=== PATIENT | male | born 1975 | race Caucasian/White ===

== ENCOUNTER 2019-02-09 07:22 | Outpatient (CLI) | payer OTHER, SELFPAY ==
[2019-02-10 11:50] LABS: Adrenocorticotropic Hormone, P 34 pg/mL
== END 2019-02-09 07:42 ==
PROVIDERS: PCP Family Medicine; Visit Provider Internal Medicine Endocrinology, Diabetes & Metabolism
DX: D35.2 Benign neoplasm of pituitary gland (principal)
CPT/HCPCS: 36415; 82533; 82024

== ENCOUNTER 2019-08-11 02:18 | Outpatient (CLI) | payer OTHER, SELFPAY ==
[2019-08-11 11:05] LABS: Anion Gap 8.8 mmol/L (3-11); BUN 10 mg/dL (7-18); CO2 29.2 mmol/L (21.0-32.0); CREATININE 0.71 mg/dL (0.70-1.30); Calcium 9.3 mg/dL (8.5-10.1); Chloride 102 mmol/L (98-107); Glucose 78 mg/dL (74-106); Potassium 4.1 mmol/L (3.5-5.1); Sodium 140 mmol/L (136-145)
[2019-08-13 12:21] LABS: Testosterone, Total 318 ng/dL (240-950)
[2019-08-14 10:21] LABS: Prolactin 9.8 ng/mL (2.1-17.7)
[2019-08-14 12:11] LABS: IGF-1, LC/MS, S 67 ng/mL (44-275); Z-score -1.65 SD
[2019-08-14 15:07] LABS: Adrenocorticotropic Hormone, P 30 pg/mL
== END 2019-08-11 02:38 ==
PROVIDERS: PCP Family Medicine; Visit Provider Internal Medicine Endocrinology, Diabetes & Metabolism
DX: E89.3 Postprocedural hypopituitarism (principal); D35.2 Benign neoplasm of pituitary gland; Z92.3 Personal history of irradiation
CPT/HCPCS: 36415; 80048; 82533; 84403; 82024; 84146; 84305

== ENCOUNTER 2019-08-18 10:34 | Outpatient (CLI) | payer OTHER, SELFPAY ==
--- NOTE | 2019-08-18 09:20 | DI.RAD_ITS ---
EXAM: XR KNEE LT 3V AP,LAT,FUNMI CLINICAL HISTORY: left knee pain. TECHNIQUE: 2D digital imaging was performed. COMPARISON: No exams were available for comparison FINDINGS: BONES: No acute fracture is present. No bony destructive lesion is seen. JOINTS: The knee is normally aligned. No joint effusion is seen. There is no joint space narrowing or periarticular spurring SOFT TISSUE: Normal. IMPRESSION: Normal radiographs of the left knee. DATA REPOSITORY: RADIATION DOSE DELIVERED:
== END 2019-08-18 10:54 ==
PROVIDERS: PCP Family Medicine; Visit Provider Physician Assistant Surgical
DX: M25.562 Pain in left knee (principal)
CPT/HCPCS: 73562

== ENCOUNTER 2019-09-07 00:37 | Outpatient (CLI) | payer OTHER, SELFPAY ==
--- NOTE | 2019-09-07 07:15 | DI.MRI_ITS ---
EXAM: MR LOWER JOINT LT WO CLINICAL HISTORY: Left knee pain,m25.562. TECHNIQUE: Multiplanar multisequence MRI was performed. COMPARISON: XR KNEE LT 3V AP,LAT,FUNMI from 08/18/2019 FINDINGS: There is a minimal joint effusion. The anterior cruciate ligament shows some intermediate signal but no evidence of a full-thickness tea r. The posterior cruciate ligament, medial and lateral collateral ligaments and extensor mechanism a ppear intact. The menisci appear normal. In the subchondral bone of the posterior aspect of the lateral femoral condyle, there is a ovoid les ion with low T1 signal high T2 signal serpiginous margins. There is no significant surrounding edema in the marrow. The findings are consistent with a chronic bone infarct. This corresponds to an are a of sclerosis seen on plain films. There is also no overlying cartilage defect. There is no subcho ndral collapse. IMPRESSION: Minimal joint effusion. Question of an ACL sprain. 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 DATA REPOSITORY:
== END 2019-09-07 00:57 ==
PROVIDERS: PCP Family Medicine; Visit Provider Physician Assistant Surgical
DX: M25.462 Effusion, left knee (principal); M25.562 Pain in left knee; M89.8X6 Other specified disorders of bone, lower leg
CPT/HCPCS: 73721

== ENCOUNTER 2019-10-16 14:55 | Outpatient (CLI) | payer MEDICARE, OTHER, SELFPAY ==
--- NOTE | 2019-10-16 14:15 | DI.RAD_ITS ---
EXAM: XR PELVIS AP CLINICAL HISTORY: pre JASWANT TECHNIQUE: COMPARISON: CR XR HIP LT COMPLETE AP PELVIS from 09/25/2019 FINDINGS: Single AP view was obtained. Note is again made of mixed sclerotic and lytic appearance of both femo ral heads, little interval change in appearance comparison with previous examination of September 24. Pr esumed bilateral avascular necrosis. No other significant bony abnormality seen. IMPRESSION:
== END 2019-10-16 15:15 ==
PROVIDERS: PCP Family Medicine; Referring Provider Family Medicine; Visit Provider Student in an Organized Health Care Education/Training Program
DX: M87.051 Idiopathic aseptic necrosis of right femur (principal); M87.052 Idiopathic aseptic necrosis of left femur; M87.9 Osteonecrosis, unspecified
CPT/HCPCS: 99213; 72170

== ENCOUNTER 2019-10-23 04:22 | Outpatient (CLI) | payer MEDICARE, OTHER, SELFPAY ==
[2019-10-23 10:38] LABS: HCT 38.4 % (40.0-50.0); HGB 13.8 g/dL (13.5-17.5); Mean Corp. HGB Concentration 35.9 g/dL (32.0-36.0); Mean Corpuscular Hemoglobin 30.1 pg (27.0-33.0); Mean Corpuscular Volume 83.8 fL (80-95); Mean Platelet Volume 8.9 fL (8.0-11.0); Platelet Count 377 x1000/uL (130-400); RBC 4.58 m/cumm (4.50-6.00); RBC Distribution Width 13.5 % (11.8-14.1)
[2019-10-23 11:01] LABS: Hemoglobin A1C 5.3 % (3.8-5.6)
[2019-10-23 11:24] LABS: Calculated LDL 117 mg/dL (<100); Cholesterol 181 mg/dL (<200); HDL Cholesterol 53 mg/dL (40-60); Triglyceride 57 mg/dL (<150)
[2019-10-23 11:31] LABS: Anion Gap 11.2 mmol/L (3-11); BUN 9 mg/dL (7-18); CO2 27.8 mmol/L (21.0-32.0); CREATININE 0.82 mg/dL (0.70-1.30); Calcium 9.2 mg/dL (8.5-10.1); Chloride 98 mmol/L (98-107); Glucose 95 mg/dL (74-106); Potassium 4.3 mmol/L (3.5-5.1); Sodium 137 mmol/L (136-145)
== END 2019-10-23 04:42 ==
PROVIDERS: PCP Family Medicine; Visit Provider Student in an Organized Health Care Education/Training Program
DX: M87.852 Other osteonecrosis, left femur (principal); E11.9 Type 2 diabetes mellitus without complications; Z01.818 Encounter for other preprocedural examination; Z01.812 Encounter for preprocedural laboratory examination
CPT/HCPCS: 36415; 80048; 80061; 85027; 86850; 86900; 86901; 83036

== ENCOUNTER 2019-10-25 06:12 | Observation (INO) | payer MEDICARE, OTHER, SELFPAY ==
[2019-10-25] VITALS (9 sets, daily range): BP systolic 97–148; BP diastolic 72–88; PULSE 58–66; RESP 11–21; TEMP 36.1–36.7; O2SAT 98–100
[2019-10-25] MEDS: Celecoxib 200 MG CAP 400 MG PO (06:34)
[2019-10-25] MEDS: Lactated Ringers 1,000 ML 80 ML IV ×2 (06:34→10:34)
[2019-10-25] MEDS: Acetaminophen 500 MG TAB 1000 MG PO ×2 (06:34→13:45)
--- NOTE | 2019-10-25 07:00 | DI.RAD_ITS ---
EXAM: XR HIP LT IN OR CLINICAL HISTORY: avascular necrosis of left hip TECHNIQUE: 2D and realtime digital imaging was performed. CONTRAST MATERIAL: Refer to procedure report. COMPARISON: CR XR PELVIS AP from 10/16/2019 FINDINGS: Fluoroscopy was provided for Dr. Baeza during the performance of a left total hip replacement. P lease refer to the procedure report for complete details. Fluoro time: 27.6 seconds IMPRESSION:
--- NOTE | 2019-10-25 07:31 | PDOC.CMPRO ---
- If Service Date Differs Date of service: 10/24/19 Time of Service: 15:00 Care Management Progress Note S/O: CM contacted Jaylan to review discharge needs prior to admission. Brian states that he is feeling anxious before surgery and does not want to stay overnight. Brian also expresses concern when CM assessed for advance directives. He states I have been asked three times about an advance directive, this is just a simple procedure should I be worried? CM provided education regarding advance directives and assisted in understanding that it is an assessment questions and asked of all patients. CM acknowledge patients concerns and appreciation for feedback. Brian states he has support at home by his spouse and feels that he can safely be discharged when he is medically ready. He is in need of a FWW, CM reviewed benefits including FWW as part of his surgical procedure. He questioned if he would be billed for it, and is concerned that he will not have the means to pay for the FWW. CM again reviewed benefits and provided education that the FWW would be part of the surgery and r/t recovery. He is agreeable to receive the equipment. CM offered to be present if needed prior to surgery to provide support. A: Jaylan is a 44 year old male being admitted today for status post left total hip P: Brian will plan to be discharged the same day, CM will coordinate a FWW, and his spouse will provide transportation home. CM offered support during patients stay and can be contacted at extension [phone] with any concerns or questions in regard to the patients needs.
[2019-10-25] MEDS: ceFAZolin 1 GM/50 ML BAG IVPB (07:50)
--- NOTE | 2019-10-25 08:40 | FEMHEA_PTH ---
PATIENT: Jaylan Arredondo JR LOC: U#:[id number] AGE/SX: 44/M ROOM: [id number] RE10/25/[address]: Jacques Baeza MD : [id number] BED: A DIS: 10/25/2019 SPEC #: [id number] RECD: 10/25/19 12:04 STATUS: DONNA REQ #: [id number] ELIJAH: 10/25/19 08:[address]: Jacques Baeza DEPT: Surgical Specimen RECD BY: Rona Bates ENTERED: 10/25/19 12:04 SP TYPE: Femo Head OTHR DR: Rayshawn Mcneill, DO Darryl Meier Tissues: 1 - FEMORAL HEAD Procedures: GROSS AND MICRO LEVEL 4 Comments: [id number]
[2019-10-25] MEDS: Bupivacaine 0.25% Pres-Free 30 ML VIAL (08:41)
[2019-10-25] MEDS: Ketorolac 30 MG/ML VIAL (08:41)
--- NOTE | 2019-10-25 10:02 | W.PM.DS.N ---
Date of service: 10/25/19 Time of Service: 12:46 DS: Diagnosis Discharge Diagnosis (1) Osteonecrosis of hip: Status: Acute Discharge Plan Disposition Patient Disposition: HOME Condition: Good Discharge Details Reason For Visit: Left Hip Avascular Necrosis Admit Date/Time: 10/25/19 06:12 Admit Provider: Jacques Baeza Attending Provider: Jacques Baeza [facility] Hospital Course: Patient was admitted to the medical/surgical floor following the procedure. The surgery was tolerated well without any notable medical, surgical, or anesthetic complications. Mobilization began postoperatively. The patient was voiding spontaneously. Vitals were stable. Physical therapy worked with the patient and was cleared for discharge home. No acute medical issues. Pain was controlled on oral regimen. Home Meds and New Rx's Prescriptions: New aspirin 81 mg tablet,delayed release (DR/EC) 81 mg PO BID Qty: 60 RF: 0 acetaminophen 500 mg tablet 1,000 mg PO Q8H PRN (Reason: pain) Qty: 90 RF: 3 pantoprazole 40 mg tablet,delayed release (DR/EC) 40 mg PO DAILY Qty: 30 RF: 0 ibuprofen 600 mg tablet 600 mg PO TID PRNQty: 90 RF: 3 oxycodone 5 mg tablet 5 mg PO Q4H Qty: 12 RF: 0 docusate sodium [Colace] 100 mg capsule 100 mg PO BID PRNQty: 10 RF: 0 Continued topiramate 50 mg tablet 50 mg PO DAILY RF: 0 triamcinolone acetonide 0.1 % cream 1 applic TP BID PRN (Reason: BLE irritant contact dermatitis) Qty: 80 RF: 1 meclizine 12.5 mg tablet See Rx Instructions PO Q8H PRN RF: 0 levothyroxine 25 mcg tablet 25 mcg PO DAILY RF: 0 riboflavin (vitamin B2) 400 mg Tablet 400 mg PO PRN PRNRF: 0 Discontinued acetaminophen 500 mg tablet 1,000 mg PO TID PRNRF: 0 ibuprofen 400 mg tablet 400 mg PO TID PRNRF: 0 Discharge Instructions Additional Instructions: Dr. Baeza's Total Hip Discharge Instructions Activity: The most important activity is to walk. You should try to take short walks a few times a day. You have no restrictions on movement or positioning, but do not try to force what you do. You will find some stiffness and weakness with hip flexion (lifting your knee). Do not try to strengthen this too early, continue to practice walking and stairs and this will come. - Outpatient physical therapy can be helpful to help return you to a normal gait and improve your flexibility and strength. This can start around 2 weeks. For most patients, it?s not necessary. Usually this is determined at the time of discharge or at the first post-operative visit. - You should wear the HIEU hose on both legs for 2 weeks. You may remove those at night. These prevent blood pooling and swelling. Dressing: Keep the surgical dressing in place for at least one week, although it may stay in place untill follow-up. It may get wet after 3 days but avoid soaking the dressing. If it gets wet, just lightly pat dry. Most people prefer to cover the dressing with some ClingWrap, Saran Wrap, to keep it dry. After the first week it may be removed if desired and then replaced with light gauze and tape or nothing. It is important to always keep some gauze or the dressing between skin folds, especially when you are sitting, so the incision is not folded over on itself at the belly fold. Medications: - You should take Tylenol and an anti-inflammatory Ibuprofen as your primary pain control medications - You have been prescribed a stronger pain medication Oxycodone for breakthrough pain, take as needed as prescribed. - You have also been prescribed a stomach acid reduction agent Pantoprozole to help reduce stomach acid and reflux. - You will be taking Aspirin 81mg twice a day for DVT prevention unless instructed otherwise. - If you have constipation you should take Colace or Miralax (both [id number]). Colace has been called in. It takes most people 3-4 days to have a bowel movement. Follow-up: 2 weeks. If you have any acute concerns or questions, please do not hesitate to contact the office at [phone]. You may contact Dr. Baeza with any questions after hours through the hospital at [phone] or on his cell phone at [phone]. Referrals: Jacques Baeza MD [ [facility] STAFF PHYSICIAN] - Activity:: Activity as Tolerated Equipment/Supplies:: Walker Diet:: As Tolerated Discharge Orders Discharge Orders: Discharge Order (Routine); Ordered 10/25/19 Ordered By: Jacques Baeza DS: Summary Status at Discharge Functional status at discharge: uses cane/walker Overall status at discharge: patient is progressing back to baseline Mental Status: mental status grossly normal Speech and Movement: speech and movement normal Mood: congruent mood Affect: normal affect Exam Psych Mental Status: mental status grossly normal Speech and Movement: speech and movement normal Mood: congruent mood Affect: normal affect DS: Data Vitals/I&O Vitals and I&O: Vital Signs Temperature 36.2 C L 10/25/19 09:42 Pulse 58 L 10/25/19 09:42 Pulse Rhythm Regular 10/25/19 06:21 Respiratory Rate 15 10/25/19 09:42 Blood Pressure 109/76 10/25/19 09:42 Pulse Oximetry 100 10/25/19 09:42 Oxygen Delivery Method Room Air 10/25/19 09:42 Oxygen Flow Rate 0 10/25/19 06:21 Pain Level 0 10/25/19 09:42 Intake & Output 10/24/19 10/24/19 10/25/19 11:59 23:59 11:59 Intake Total 870 / 870 Output Total 75 / 75 Balance 795 / 795 Weight 51.8 kg Intake: IV 870 / 870 Output: Estimated Blood Loss 75 / 75 Other: Emesis Description None PFSH Social History Smoking/Tobacco Use Status: Current every day Tobacco Type: cigarettes Years smoked: 28 and e-cigarettes Smokeless tobacco user: other Alcohol Intake: current Alcohol Intake frequency: a few times a month Alcohol type: beer Drug use: Daily Substance use type: does not use Adopted: No Household members: spouse and children Housing: house Number of Children: 3 Current gender identity: male What is your relationship status?: Panel score (0-1 are the most socially isolated patients): 1 What type of physical activity do you participate in: none and additional Details: active at home--daily home activities Seatbelt use: always Helmet use: Yes Drive intox or ride w/intox skip load driver: No Working smoke detector in home: Yes Fire extinguisher in home: Yes Carbon monox detector in home: Yes Firearms in home: Yes (1 at bedside loaded but door locked)
--- NOTE | 2019-10-25 10:33 | ROE_ITS ---
Date of service: 10/25/19 Time of Service: 09:19 Operative Note Operative Note DATE OF PROCEDURE: 10/25/19 PRE-OP DIAGNOSIS: Left Hip Avascular Necrosis POST-OP DIAGNOSIS: same PROCEDURE: Left Anterior Total Hip Arthroplasty SURGEON: Jacques Baeza PLUMBING ASSEMBLER INSTALLER: Lolis Coyne ANESTHESIA: spinal ESTIMATED BLOOD LOSS: 75 PATHOLOGY: none sent TOURNIQUET TIME: 0 COMPLICATIONS: None Patient was transported to: PACU Patient's condition: stable Implants: 1. Depuy [place] Acetabular Component, 50mm 2. Depuy Acetabular Liner, [id number] 3. Depuy Corail Coxa Vara Femoral Stem, Size 10 4. Depuy Altrx Ceramic Femoral Head, Size 32+1mm Indications: I have seen Kurt in clinic for hip pain, MRI confirmed hip avascular necrosis. Kurt has exhausted nonoperative methods and was having significant limitations in daily function and desired better function and less pain. I discussed the technical details of a hip replacement. I explained the risks of the procedure to include, but not limited to, bleeding, infection, pain, stiffness, fracture, damage to nerves and vessels, damage to muscles and tendons, loosening, instability, leg length inequality, need for repeat procedure, blood clot and cardiopulmonary demise. Despite these risks, Kurt elected to proceed. Findings: There was notable collapse of the superior femoral head with underlying soft bone represnting the area of necrosis. The femoral head was sent to pathology. Procedure Description: Kurt was greeted in the preoperative holding area where the correct side was identified and marked. The consent was reviewed with the patient and signed. The history and physical was updated. All questions were answered. Kurt was taken back to the operating room. A spinal anesthestic was then administered. The patient was placed into the supine position on the operating room table. The patient was then positioned onto the ARCH table. Both feet were wrapped with Webrill cotton wrap along with Coban. The feet were placed in specialized boots for the ARCH table, well seated within the boot and secured. SCDs were applied. The patient was then slid down onto a peroneal post and the nonoperative leg was secured in a leg nolasco attached to the table. The operative side was placed into the ARCH table attachment and bed height and positioning was secured. A preoperative AP pelvis was obtained to serve as a r eference for determining leg lengths. Prophylactic antibiotics in the form of Cefazolin were administered. 1g of Tranxemic Acid was given intravenously within 30 minutes of incision. The left leg was then prepped with Chloraprep and draped in a standard fashion. A second prep with Chloraprep was performed prior to placement of a shower-curtain type drape with Iodine impregnated skin protection. A timeout to confirm correct identity, side and site, procedure, allergies, anesthesia, and medical concerns was performed. An obliquely oriented incision was made starting lateral to the ASIS and running distal over the Tensor Fascia Priyanka (TFL) muscle belly toward the fibular head, approximately 10cm. The skin and soft tissue was dissected sharply, through Fazal?s fascia, and to the fascia of the TFL. With the fascia and superior border of the IT band identified, the fascia was incised with a new knife just above any perforators from the IT band. The TFL muscle belly was bluntly dis sected away from the fascia and moved laterally. The fat between TFL and rectus was identified to ensure the dissection was not within the TFL. Blunt dissection created space between abductors and the capsule and retractor was placed over the lateral femoral neck. The fibers of the rectus femoris tendon were identified and these were freed from the anterior capsule. A second cobra retractor was placed around the medial femoral neck. The TFL was further retracted laterally to show the deep fascia. Careful dissection through this layer identified three main crossing vessels of the lateral femoral circumflex. These were cauterized in multiple locations and then cut without any noticeable bleeding. The TFL was further released bluntly from the deep fascia to expose anterior hip capsule and fat The Demario orthopaedic retractor was then placed beneath the TFL and against sartorius and medial soft tissues to protect and retract the soft tissues. A T-capsulotomy was then performed starting at the superior lateral acetabulum and moving distally to the intertrochanteric ridge. These capsular flaps were tagged with a No. 1 Ethibond and elevated from within. The capsular flaps were released to the shoulder of the lateral neck and to the lesser trochanter to give excellent visualization of the proximal femur. A neck osteotomy was performed using an oscillating saw based on preoperative templates. This cut started in the shoulder and of the lateral neck and exited medially. The saw was at all times directed medially to avoid injury to the greater trochanter. 6cm of traction was applied to the leg and the osteotomy opened. The femoral head was removed with a corkscrew, making sure to protect the TFL on its exit. This was measured on the back table to determing the starting reamer size. There was notable collapse of the superior portion of the femoral head. A freer elevator was able to be pushed easily into this bone representing the area of nerosis. It was sent to pathology for complete evaluation. Portions of the rectus obscuring visualization were minimally elevated off the superior acetabulum. An anterior retractor was placed over the anterior wall between capsule and labrum and attached to the Gripper retraction system. A posterior retractor was placed similarly. This provided excellent visualization. The contents of the cotyloid fossa were removed with electrocautery and the labrum was removed with a knife. Acetabular reaming began with a 47mm reamer. This first reaming was directed anterior to posterior and medial to get down to the true floor. This was inspected and reamed until the true floor was reached. The anterior retractor was then released and entry and exit was provided by traction on the capsular flaps. I then reamed sequentially up to a 49mm reamer where good fit was obtained. The larger reamers were oriented based on anatomical reference of the anterior and lateral lepe to ensure proper abduction and anteversion. Positioning and size was confirmed with the fluoroscopy. A 50mm Depuy [place] acetabular component was selected. The acetabulum was reamed around the periphery with the selected acetabular size to prevent a rim fit. The deep tissues were irrigated. The acetabular component was then impacted in a position of about 40-45 degrees of abduction and 15-20 degrees of anteversion, using the patient?s anatomy as the ultimate landmark. Fluoroscopy was used to confirm this. There was excellent commercial lending vice president of the acetabular component and the inserting handle was removed. The acetabular liner, Depuy [id number] polyethylene liner, was inserted and lined up with the tines of the acetabular component. There was no soft tissue interposition. The liner was then impacted into position and confirmed to be well-seated. A portion of the kwabena-articular cocktail was then injected around the acetabulum into the capsule and periosteum. This cocktail consisted of 50cc of 0.25% Bupivicaine and 20cc of Exparel, expanded to a total of 120cc. Traction was released from the femur. The leg was rotated to 120 degrees. Any remaining medial capsule was released until the lesser trochanter was easily palpable. A Ruano retractor was placed medially. The lateral capsule was further released into the shoulder to allow access to the greater trochanter. A Ruano retractor was placed over the greater trochanter which allowed the trochanter to flip in front of the capsule for excellent exposure. The leg was brought down into maximal extension and 20 degrees of adduction while ensuring there was no impingement on the acetabulum. Any remnant capsule within the trochanter was released. Piriformis and obturator externis were identified and protected. There was excellent access to the proximal femur. The lateral neck remnant was removed with a rongeur. A blunt canal probe was used to identify the canal and trajectory for later broaching. A box osteotome initiated the broach course. A small curved rasp and a curved curette were used to work laterally. Broaching then began with a size 8 Corail broach. This was inserted manually around the trochanter and into the canal before mallet blows. The broach was seated to the neck cut level based on the neck cut and the preoperative template. Sequential broaching was continued with the [email or web address] pneumatic broaching device until a tight fit was obtained with good rotational control of the femur. A trial standard neck was inserted along with a +1 trial head. The leg was brought out of extension and adduction and then reduced with traction and internal rotation. The leg was stable anteriorly in a position of 30 degrees of extension and 90 degrees of external rotation. Fluoroscopy was used to ensure there was no fracture and the stem was seated well. Leg lengths were checked with an AP pelvis and pelvic reference points. JointMass Appeal navigation system was used to confirm appropriate positioning and leg length and offset. Based on the visual inspection of the x-ray as well as the joint point navigation system, we had not fully restored the offset but had added leg length. Switching to a coxa vara stem would bring her leg length even and add 1 mm of offset., Therefore, we proceeded with a coxa vara stem. Once content with the desired offset and leg lengths, the leg was brought back into extension, external rotation and adduction. The periosteum and surrounding tissue was injected with remaining portion of the kwabena-articular cocktail. The proximal femur was irrigated as well as the deep tissues. The Depuy Corail coxa vara stem, size 10, was then manually inserted into the proximal femur making sure to control rotation. It was then malleted into position with light blows, giving breaks to allow bone expansion and decrease risk of fracture. The selected Depuy Altrx Ceramic Head, size 32+1mm, was then placed onto the clean and dry trunnion and secured with impaction onto the tapered fit. The leg was brought back out of extension and adduction and reduced with traction and internal rotation. Stability was confirmed with no shuck at 90 degrees of external rotation and 30 degrees of extension. No impingement through range of motion arc. Final x-ray images were obtained with fluoroscopy to confirm adequate positioning and no intraoperative fracture. The deep tissues were thoroughly irrigated with Irrisept chlorhexadine solution. The second dose of TXA 1g was administered intravenously.The capsule was then reapproximated with the previously placed Ethibond sutures. The TFL fascia was finally closed with a No. 2 Stratafix, barbed suture. Deep tissues were then reapproximated with 0 Vicryl and a running 2-0 Vicryl. The skin was closed with a running 4-0 Monocryl in a subcuticular fashion. This was reinforced with skin glue. A Mepilex silver dressing was applied. At the end of the case, all counts were correct. Kurt was transferred to the hospital bed without difficulty and suffering no apparent complication. Kurt has a good prognosis. Physical therapy will start today and without restrictions, weight-bearing as tolerated. Aspirin 81mg BID will be used for DVT prophylaxis.
--- NOTE | 2019-10-25 11:14 | IN_ITS ---
Date of service: 10/25/19 Time of Service: 13:21 PT Notes Visit Reasons: Left Hip Avascular Necrosis Physical Therapy Inpatient Initial Evaluation Date: 10/25/2019 Referring Doctor: Jacques Baeza MD PT Orders: PT CONSULT: Status post Ortho surgery. Status post anterior L JASWANT. Precautions: Fall. Standard. 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 PMHX: Medical History Afferent pupillary defect of right eye (Acute) Anisocoria (Acute) Bilateral optic atrophy (Acute) Overgrown toenails (Acute) Pituitary tumor (Acute) MRI 11/28/18 [facility] 02[facility]19 [facility]. Vertigo (Acute) Visual field defect (Acute) Surgical History Pituitary macroadenoma (Acute) S/P Transsphenoidal Endoscopic Resection : 05/12/17 Social History/Home Situation: Patient lives with in a single floor house with a ramp to enter. He states that the house had been made handicap accessible to accommodate caring for both of his grandparents a while back. 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 Patient was independent with all aspects of ADLs without an assistive ambulatory device nor adaptive equipment. Equipment Owned/DME: None Subjective: Patient reports being nauseated from the pain pill that he took earlier this morning. He reports 4/10 pain in the left hip with movement and with weight bearing. He hopes to go home today as soon as he is medically cleared to do so. Objective: General Observation: Mepilex Ag over surgical incision. Mental Status: Alert and oriented x4 Pain: 4/10 in left hip Vital Signs: Within normal limits as monitored by nursing staff before and after PT session ROM: Right Upper Extremity: Shoulder Flexion WFL. Shoulder abduction WFL. Elbow flexion WFL. Wrist flexion WFL. Opening and closing of hand WFL. Left Upper Extremity: Shoulder Flexion WFL. Shoulder abduction WFL. Elbow flexion WFL. Wrist flexion WFL. Opening and closing of hand WFL. Right Lower Extremity: Hip flexion WFL. Hip abduction WFL. Knee flexion WFL. Ankle dorsiflexion WFL. Ankle plantarflexion WFL. Left Lower Extremity: Hip flexion allows up to 30 degrees beyond 90 while seated at edge of bed. Hip abduction WFL. Knee flexion WFL. Ankle dorsiflexion WFL. Ankle plantarflexion WFL. Strength: Right Upper Extremity: Shoulder flexors 5/5. Shoulder abductors 5/5. Elbow flex ors 5/5. Elbow extensors 5/5. Clinical Social Work Aide strong. Left Upper Extremity: Shoulder flexors 5/5. Shoulder abductors 5/5. Elbow flexors 5/5. Elbow extensors 5/5. Clinical Social Work Aide strong. Right Lower Extremity: Hip flexors 5/5. Hip abductors 5/5. Knee flexors 5/5. Knee extensors 5/5. Ankle dorsiflexors 5/5. Ankle plantarflexors 5/5. Left Lower Extremity:Hip flexors 3-/5. Hip abductors 4-/5. Knee flexors 4/5. Knee extensors 4-/5. Ankle dorsiflexors 5/5. Ankle plantarflexors 5/5. Sensation: Intact as to pain and pressure on bilateral lower extremities. Bed Mobility/Transfers: Supine to sit standby assist using BUE for support Sit to supine standby assist using BUE for support Sit to stand standby assist using BUE for support, requires use of front wheeled walker Stand to sit standby assist using BUE for support Bed to chair standby assist using BUE for support, requires use of front wheeled walker Chair to bed standby assist using BUE for support, requires use of front wheeled walker Gait: Patient tolerated level surface ambulation of 200 feet using front wheeled walker with step through gait pattern requiring only contact-guard assist from PT. Patient states that he felt better with walking with IV administration of Zofran but felt nauseated once more while walking back to his room from the therapy gym. Nurse did detail was updated. Balance: Static Sitting: Normal Dynamic Sitting: Normal Static Standing: Fair Dynamic Standing: Fair Special Tests: Mobility Limitations Standardized Measure [facility] AM-PAC 6 clicks Basic Mobility Inpatient Short Form: Raw Score: 22 CMS Score: 21% deficit Informed Consent/Education: Patient instructed in purpose of PT consult and plan of care. Assessment: Espinoza presents with functional mobility decline, need for an assistive ambulatory device for all mobility ADL performance, balance impairment, weakness and strength deficit resulting from postoperative status. 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 Patient presents with clinical signs and symptoms consistent with current/admitting diagnoses that have resulted to mobility limitations, gait instability, generalized weakness, and impairment of motor control as demonstrated by the following impairment level findings: 1. Decreased strength to left hip major muscle groups 2. Impaired standing balance 3. Impaired activity tolerance 4. Limitation of joint range of motion in left hip Impairments are contributing to the following functional limitations: 1. Inability to safely ambulate without assistive device and physical assistance 2. Increase completion time for mobility ADL performance 3. Increased fall risk Patient is assessed as a 01334 moderate complexity based on the following: History: 44 [id number] with impairment level findings, functional limitations, and past medical history as indicated above Examination: Demonstrable impairment in strength, balance, and mobility level with underlying impairments and functional limitations as documented above Presentation:Evolving Decision Makin moderate complexity Goals: Goals X3 days 1. Supine-Sit independent 2. Sit-Supine independent 3. Sit-Stand independent 4. Stand-Sit independent 5. Bed-Chair independent 6. Chair-Bed independent 7. Independent gait on level surface with use of least restrictive device for at least 300 feet without report of pain nor dyspnea 8. Independent with home exercise program 9. Good static and dynamic standing balance/tolerance Plan of Care/Treatment Plan: 1-2x/day, 7 days/week x 1 week. Plan of care has been reviewed with the SIGNAL INTEGRITY ENGINEER providing the service under Physical Therapy direction. Initiate Physical Therapy intervention for strengthening, bed mobility, transfers, gait, stairs, balance training, use of assistive device. DISCHARGE RECOMMENDATIONS: Home when medically cleared to do so. Outpatient physical therapy services according to orthopedic surgeon's time and recommendations. TREATMENT CODE/TIME: 29899 x 28 minutes beginning at 11:14 AM. Thank you very much for this referral. Claritza Swann PT, DPT, CLT [facility] [place], [place]
[2019-10-25] MEDS: oxyCODONE 5 MG TAB PO (11:43)
--- NOTE | 2019-10-25 13:21 | INDS_ITS ---
Date of service: 10/25/19 Time of Service: 13:21 PT Notes Visit Reasons: Left Hip Avascular Necrosis Inpatient Physical Therapy Discharge Summary Dates: 10/25/2019 Dates of Service: 10/25/2019 only Referring Doctor: Jacques Baeza MD PT Orders: PT CONSULT: Status post Ortho surgery. Status post anterior L JASWANT. Precautions: Fall. Standard. 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 PMHX: Medical History Afferent pupillary defect of right eye (Acute) Anisocoria (Acute) Bilateral optic atrophy (Acute) Overgrown toenails (Acute) Pituitary tumor (Acute) MRI 11/[facility] Vertigo (Acute) Visual field defect (Acute) Surgical History Pituitary macroadenoma (Acute) S/P Transsphenoidal Endoscopic Resection : 05/12/17 Social History/Home Situation: Patient lives with in a single floor house with a ramp to enter. He states that the house had been made handicap accessible to accommodate caring for both of his grandparents a while back. 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 Patient was independent with all aspects of ADLs without an assistive ambulatory device nor adaptive equipment. Equipment Owned/DME: None Subjective: Patient reports being nauseated from the pain pill that he took earlier this morning. He reports 4/10 pain in the left hip with movement and with weight bearing. He hopes to go home today as soon as he is medically cleared to do so. Objective: General Observation: Mepilex Ag over surgical incision. Mental Status: Alert and oriented x4 Pain: 1-2/10 in left hip Vital Signs: Within normal limits as monitored by nursing staff before and after PT session ROM: Right Upper Extremity: Shoulder Flexion WFL. Shoulder abduction WFL. Elbow flexion WFL. Wrist flexion WFL. Opening and closing of hand WFL. Left Upper Extremity: Shoulder Flexion WFL. Shoulder abduction WFL. Elbow flexion WFL. Wrist flexion WFL. Opening and closing of hand WFL. Right Lower Extremity: Hip flexion WFL. Hip abduction WFL. Knee flexion WFL. Ankle dorsiflexion WFL. Ankle plantarflexion WFL. Left Lower Extremity: Hip flexion allows up to 30 degrees beyond 90 while seated at edge of bed. Hip abduction WFL. Knee flexion WFL. Ankle dorsiflexion WFL. Ankle plantarflexion WFL. Strength: Right Upper Extremity: Shoulder flexors 5/5. Shoulder abductors 5/5. Elbow flexors 5/5. Elbow extensors 5/5. Quality Project Manager strong. Left Upper Extremity: Shoulder flexors 5/5. Shoulder abductors 5/5. Elbow flexors 5/5. Elbow extensors 5/5. Quality Project Manager strong. Right Lower Extremity: Hip flexors 5/5. Hip abductors 5/5. Knee flexors 5/5. Knee extensors 5/5. Ankle dorsiflexors 5/5. Ankle plantarflexors 5/5. Left Lower Extremity:Hip flexors 3-/5. Hip abductors 4-/5. Knee flexors 4/5. Knee extensors 4-/5. Ankle dorsiflexors 5/5. Ankle plantarflexors 5/5. Sensation: Intact as to pain and pressure on bilateral lower extremities. Bed Mobility/Transfers: Supine to sit standby assist using BUE for support Sit to supine standby assist using BUE for support Sit to stand standby assist using BUE for support, requires use of front wheeled walker Stand to sit standby assist using BUE for support Bed to chair standby assist using BUE for support, requires use of front wheeled walker Chair to bed standby assist using BUE for support, requires use of front wheeled walker Gait: Patient tolerated level surface ambulation of 520 feet using front wheeled walker with step through gait pattern requiring only standby assist from PT. Patient states that he felt better with walking with IV administration of Zofran but felt nauseated once more while walking back to his room from the therapy gym. Nurse did detail was updated. Balance: Static Sitting: Normal Dynamic Sitting: Normal Static Standing: Fair Dynamic Standing: Fair Assessment: Espinoza presents with functional mobility decline, need for an assistive ambulatory device for all mobility ADL performance, balance impairment, weakness and strength deficit resulting from postoperative status. 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 Goals: Goals X3 days 1. Supine-Sit independent NOT MET 2. Sit-Supine independent NOT MET 3. Sit-Stand independent NOT MET 4. Stand-Sit independent NOT MET 5. Bed-Chair independent NOT MET 6. Chair-Bed independent NOT MET 7. Independent gait on level surface with use of least restrictive device for at least 300 feet without report of pain nor dyspnea NOT MET 8. Independent with home exercise program NOT MET 9. Good static and dynamic standing balance/tolerance NOT MET DISCHARGE RECOMMENDATIONS: Home when medically cleared to do so. Outpatient physical therapy services according to orthopedic surgeon's time and recommendations. TREATMENT CODE/TIME: 94913 x 25 minutes beginning at 13:21 PM. Thank you very much for this referral. Claritza Swann PT, DPT, CLT [facility] [place], [place]
[2019-10-25] MEDS: Ibuprofen 600 MG TAB PO (13:44)
--- NOTE | 2019-10-25 14:45 | NUR.NOTE ---
Nursing Note: Pt admitted from PACU. A&Ox3, VSS, c/o pain in left knee 09/23. Hip drsg in place. ice pack in place. Will continue to monitor
--- NOTE | 2019-10-25 15:13 | PDOC.CMDIS ---
- If Service Date Differs Date of service: 10/25/19 Time of Service: 15:13 LACE Index Scoring Tool - Questions: Length of Stay (in days): 1 Acuity (Admit via E.D.?): No Comorbidities: Any Tumor E.D. Visits: 0 - Answers: Total Score: 3 Risk of Readmission: Low Risk Care Management Discharge Reason for Hospitalization: Total Left hip Discharge Plan: Jaylan is being discharged home today status post total left hip. PHIL met with patient prior to discharge he states that he is feeling much better today and less anxious. He states he is glad that he had the surgery he had been having a lot of pain prior to the surgery. Brian states that he had been feeling very anxious prior to coming to the hospital and apologized for his discord over the phone. Brian was provided a FWW by PHIL which he agrees to. His spouse will provide transporation home at time of discharge. Patient/Family Education Needs: Discharge education, limitations and follow up plan of care.
--- NOTE | 2019-10-26 16:32 | PDOC.CMPRO ---
- If Service Date Differs Date of service: 10/26/19 Time of Service: 16:32 Care Management Progress Note CM contacted patient for follow up after discharge. CM discussed medications, follow up plan of care and who to contact if concerns or questions. Brian states he is having some increased pain today however he feels that he was prepared by what to expect during recovery.
== END 2019-10-25 14:33 | disposition home or self-care (01) ==
LOC: PDS 10:03 → MS 10:12
PROVIDERS: Admitting Provider Student in an Organized Health Care Education/Training Program; PCP Family Medicine; Visit Provider Student in an Organized Health Care Education/Training Program
PROC: 0SRB04A Replacement of Left Hip Joint with Ceramic on Polyethylene Synthetic Substitute, Uncemented, Open Approach (ICD-10-PCS; CPT 27130; principal; 2019-10-25 07:30)
DX: M87.052 Idiopathic aseptic necrosis of left femur (principal); Z96.642 Presence of left artificial hip joint
CPT/HCPCS: 27130; 20985; C1776; 76000; 88305; 97162; 97530; NC; 73501; G0378; J0690; J1720; J1885; J2001

== ENCOUNTER 2019-11-13 10:38 | Outpatient (CLI) | payer MEDICARE, OTHER, SELFPAY ==
--- NOTE | 2019-11-13 10:04 | DI.RAD_ITS ---
EXAM: XR HIP LT COMPLETE AP PELVIS CLINICAL HISTORY: 1st post op. TECHNIQUE: 2D digital imaging was performed. COMPARISON: CR XR HIP LT COMPLETE AP PELVIS from 09/25/2019 FINDINGS: There is a stable left total hip replacement. No evidence of hardware failure is seen. Mixed sclero tic and lytic lesions are again seen in the right femoral head suspicious for avascular necrosis. Th e findings are unchanged. The bones are intact and normally mineralized. The soft tissues are unrem arkable. IMPRESSION: Stable left THR. DATA REPOSITORY: RADIATION DOSE DELIVERED:
== END 2019-11-13 10:58 ==
PROVIDERS: PCP Family Medicine; Referring Provider Family Medicine; Visit Provider Student in an Organized Health Care Education/Training Program
DX: Z96.642 Presence of left artificial hip joint (principal); Z47.1 Aftercare following joint replacement surgery
CPT/HCPCS: 73502

== ENCOUNTER → 2019-12-11 09:13 | Outpatient (BNVA) | payer MEDICARE, OTHER, SELFPAY | PROVIDERS: PCP Family Medicine; Referring Provider Family Medicine; Visit Provider Student in an Organized Health Care Education/Training Program | DX: Z47.1 Aftercare following joint replacement surgery; Z96.642 Presence of left artificial hip joint; M76.32 Iliotibial band syndrome, left leg ==

== ENCOUNTER → 2020-01-25 08:52 | Outpatient (BNVA) | payer MEDICARE, OTHER, SELFPAY | PROVIDERS: PCP Family Medicine; Referring Provider Family Medicine; Visit Provider Student in an Organized Health Care Education/Training Program | DX: Z47.1 Aftercare following joint replacement surgery; Z96.642 Presence of left artificial hip joint ==

== ENCOUNTER 2020-04-12 01:55 | Outpatient (CLI) | payer MEDICARE, OTHER, SELFPAY ==
--- NOTE | 2020-04-17 12:10 | PDOC.EEG_ITS ---
Neurology EEG EEG: [facility] Department of Neurology LONG-TERM AMBULATORY EEG REPORT Date of Recordin04/12/20 at 15:29:43 to 04/15/20 at 16:57:37 Interpreting Physician: Dr. Marcelle Bey PCP/Referring Provider: Dr. Laura Tabares; Dr. Rayshawn Mcneill Reason for study: Mr. Arredondo is a 45 year-old man with a pituitary macroadenoma s/p partial resection with episodic vertigo associated with altered awareness, concerning for seizure. Current Medications: Home Medications Medication Instructions Recorded Confirmed Type triamcinolone acetonide 0.1 % 1 applic TP BID PRN #80 gm 07/26/19 12/11/19 Rx topical cream levothyroxine 25 mcg PO DAILY 10/23/19 04/15/20 History riboflavin (vitamin B2) 400 mg PO PRN PRN 10/23/19 04/15/20 History acetaminophen 1,000 mg PO Q8H PRN #90 tab 10/25/19 04/15/20 Rx ibuprofen 600 mg PO TID PRN #90 tab 10/25/19 04/15/20 Rx sildenafil 50 mg tablet 50 mg PO DAILY PRN #20 tab 04/15/20 04/15/20 Rx METHODS: An 18-channel digitized electroencephalogram was recorded in the ambulatory setting with video. The 10/20 international system of electrode placement was used and bipolar and referential electrode montages were recorded. In addition to EEG the patient was monitored for EKG and by video. Activation procedures of photic stimulation and hyperventilation were performed if applicable. The duration of the recording was 72 hours. DESCRIPTION OF EEG: Waking background activity: During maximal wakefulness a 10-Hz posterior background rhythm was present which was well-modulated, symmetrical, reactive to eye opening, and of moderate voltage. Faster frequencies were present in the bilateral anterior head regions. There was a normal anterior-posterior voltage gradient. Drowsy and sleeping background activity: During drowsiness, there was attenuation of the posterior dominant background rhythm and vertex waves. Normal stage II and III sleep was present with symmetrical sleep spindles, K- complexes, and vertex waves with slowing of the background rhythm to delta/theta frequencies. REM sleep manifested by rapid lateral eye movements and faster bridgette kground rhythms was recorded. Arousal was unremarkable. There were frequent arousals seen during sleep. Interictal abnormalities: During sleep only, there were rare left fr ontal/anterior temporal, high-amplitude, spike-waves with alternating focus at F7 and Fp1. Ictal findings: Event #1 on 04/14/20 at 14:16:25 -Clinical manifestations: No reported symptoms or events. ?Accidental button push. -EEG findings: Normal awake EEG. Activating Procedures: Photic stimulation was performed which produced no posterior driving. H yperventilation was performed with moderate effort and produced no physiological slowing of the background. EKG: EKG revealed normal sinus rhythm. INTERPRETATION: This long-term EEG is abnormal due to rare, nocturnal, left frontal/anterior temporal spike-wave discharges at F7/Fp1. Frequent nocturnal arousals also noted during sleep. PRIOR EEG: none CLINICAL CORRELATION: This recording represents the interictal expression of a localization-related epilepsy and indicates the patient is at increased risk for partial and secondary tonic-clonic seizures. The nocturnal arousals could indicate a sleep disorder such as sleep apnea. Clinical correlation is advised. Marcelle Bey MD
== END 2020-04-12 02:15 ==
PROVIDERS: PCP Family Medicine; Visit Provider Psychiatry & Neurology Neurology
DX: H81.4 Vertigo of central origin (principal); R41.82 Altered mental status, unspecified
CPT/HCPCS: 95714; 95723; 95724

== ENCOUNTER 2020-04-12 04:56 | Outpatient (CLI) | payer MEDICARE, OTHER, SELFPAY ==
[2020-04-12 14:55] LABS: Abs Immature Grans 0.05 10^3/uL (0.0-0.06); Absolute Basophil Count 0.06 10^3/uL (0.0-0.2); Absolute Eosinophil Count 0.21 10^3/uL (0.0-0.7); Absolute Lymphocyte Count 1.88 10^3/uL (1.2-3.4); Absolute Monocyte Count 0.61 10^3/uL (0.1-0.8); Absolute Neutrophil Count 6.03 10^3/uL (1.2-6.7); Basophils % 0.7; Eosinophils % 2.4; HCT 39.7 % (40.0-50.0); HGB 13.6 g/dL (13.5-17.5); Immature Grans % 0.6; Lymphocytes % 21.3; MCH 29.5 pg (27.0-33.0); MCHC 34.3 % (32.0-36.0); MCV 86.1 fL (80-95); MPV 8.9 fL (8.0-11.0); Monocytes % 6.9; Neutrophils % 68.1; Nucleated RBC 0 %; Platelet Count 340 10^3/uL (130-400); RBC 4.61 10^6/uL (4.36-5.78); RDW 13.2 % (11.8-14.1); RDW-SD 41.3 fL; WBC 8.84 10^3/uL (4.4-10.8)
[2020-04-12 16:01] LABS: ALT 26 U/L (16-63); AST 21 U/L (15-37); Albumin 4.2 g/dL (3.4-5.0); Alkaline Phosphatase 115 U/L (46-116); Anion Gap 5.7 mmol/L (3-11); BUN 16 mg/dL (7-18); Bilirubin, Total 0.3 mg/dL (0.2-1.0); CO2 29.3 mmol/L (21.0-32.0); CREATININE 1.07 mg/dL (0.70-1.30); Calcium 8.9 mg/dL (8.5-10.1); Chloride 103 mmol/L (98-107); Glucose 101 mg/dL (74-106); Potassium 4.2 mmol/L (3.5-5.1); Sodium 138 mmol/L (136-145); T4 7.4 ug/mL (4.7-13.3); TSH 0.78 uIU/mL (0.36-3.74)
[2020-04-12 21:08] LABS: T3, Total 93 ng/dL (97-169)
== END 2020-04-12 05:16 ==
PROVIDERS: PCP Family Medicine; Visit Provider Psychiatry & Neurology Neurology
DX: D35.2 Benign neoplasm of pituitary gland (principal)
CPT/HCPCS: 36415; 80053; 95714; 84436; 84443; 84480; 85025

== ENCOUNTER 2020-05-02 01:57 | Outpatient (CLI) | payer MEDICARE, SELFPAY, OTHER | END 2020-05-02 02:17 | PROVIDERS: PCP Family Medicine; Visit Provider Internal Medicine Endocrinology, Diabetes & Metabolism | DX: D35.2 Benign neoplasm of pituitary gland (principal) | CPT/HCPCS: 36415; 82533 ==

== ENCOUNTER 2020-06-19 03:48 | Outpatient (CLI) | payer MEDICARE, OTHER, SELFPAY ==
[2020-06-19 08:23] LABS: Anion Gap 6.2 mmol/L (3-11); BUN 10 mg/dL (7-18); CO2 29.8 mmol/L (21.0-32.0); CREATININE 0.8 mg/dL (0.70-1.30); Calcium 9.4 mg/dL (8.5-10.1); Chloride 96 mmol/L (98-107); Glucose 97 mg/dL (74-106); Potassium 3.8 mmol/L (3.5-5.1); Sodium 132 mmol/L (136-145)
== END 2020-06-19 03:49 | disposition home or self-care (01) ==
LOC: LBO 03:49
PROVIDERS: PCP Family Medicine; Visit Provider Psychiatry & Neurology Neurology
DX: D35.2 Benign neoplasm of pituitary gland (principal)
CPT/HCPCS: 36415; 80048

== ENCOUNTER 2020-07-01 01:57 | Outpatient (CLI) | payer MEDICARE, OTHER, SELFPAY ==
[2020-07-01 14:58] LABS: T4 7.4 ug/mL (4.7-13.3)
[2020-07-02 16:04] LABS: Adrenocorticotropic Hormone, P 35 pg/mL
[2020-07-04 07:34] LABS: Testosterone, Total 245 ng/dL (240-950)
== END 2020-07-01 01:58 | disposition home or self-care (01) ==
LOC: LBO 01:57
PROVIDERS: PCP Family Medicine; Visit Provider Internal Medicine Endocrinology, Diabetes & Metabolism
DX: D35.2 Benign neoplasm of pituitary gland (principal)
CPT/HCPCS: 36415; 82533; 84403; 82024; 84436

== ENCOUNTER 2020-07-24 03:51 | Outpatient (CLI) | payer MEDICARE, OTHER, SELFPAY ==
[2020-07-24 09:07] LABS: Anion Gap 7.1 mmol/L (3-11); BUN 7 mg/dL (7-18); CO2 29.9 mmol/L (21.0-32.0); CREATININE 0.8 mg/dL (0.70-1.30); Calcium 9.1 mg/dL (8.5-10.1); Chloride 97 mmol/L (98-107); Glucose 65 mg/dL (74-106); Potassium 3.9 mmol/L (3.5-5.1); Sodium 134 mmol/L (136-145)
== END 2020-07-24 03:52 | disposition home or self-care (01) ==
LOC: LBO 03:51
PROVIDERS: PCP Family Medicine; Visit Provider Psychiatry & Neurology Neurology
DX: D35.2 Benign neoplasm of pituitary gland (principal)
CPT/HCPCS: 36415; 80048

== ENCOUNTER 2020-07-31 08:11 | Outpatient (CLI) | payer MEDICARE, OTHER, SELFPAY ==
[2020-07-31 09:26] LABS: Anion Gap 7.1 mmol/L (3-11); BUN 9 mg/dL (7-18); CO2 27.9 mmol/L (21.0-32.0); CREATININE 0.8 mg/dL (0.70-1.30); Chloride 99 mmol/L (98-107); Glucose 66 mg/dL (74-106); Potassium 4.6 mmol/L (3.5-5.1); Sodium 134 mmol/L (136-145)
== END 2020-07-31 08:12 | disposition home or self-care (01) ==
LOC: LBO 08:13
PROVIDERS: PCP Family Medicine; Visit Provider Psychiatry & Neurology Neurology
DX: D35.2 Benign neoplasm of pituitary gland (principal)
CPT/HCPCS: 80048

== ENCOUNTER 2020-08-07 08:02 | Outpatient (CLI) | payer MEDICARE, OTHER, SELFPAY ==
[2020-08-07 08:27] LABS: Anion Gap 6.9 mmol/L (3-11); BUN 6 mg/dL (7-18); CO2 31.1 mmol/L (21.0-32.0); CREATININE 0.7 mg/dL (0.70-1.30); Calcium 9.6 mg/dL (8.5-10.1); Chloride 97 mmol/L (98-107); Glucose 65 mg/dL (74-106); Potassium 3.9 mmol/L (3.5-5.1); Sodium 135 mmol/L (136-145)
== END 2020-08-07 08:03 | disposition home or self-care (01) ==
PROVIDERS: PCP Family Medicine; Visit Provider Psychiatry & Neurology Neurology
DX: D35.2 Benign neoplasm of pituitary gland (principal)
CPT/HCPCS: 36415; 80048

== ENCOUNTER 2020-08-14 03:34 | Outpatient (CLI) | payer MEDICARE, OTHER, SELFPAY ==
[2020-08-14 09:09] LABS: Anion Gap 6.3 mmol/L (3-11); BUN 9 mg/dL (7-18); CO2 30.7 mmol/L (21.0-32.0); CREATININE 0.9 mg/dL (0.70-1.30); Calcium 8.9 mg/dL (8.5-10.1); Chloride 100 mmol/L (98-107); Glucose 70 mg/dL (74-106); Potassium 4.1 mmol/L (3.5-5.1); Sodium 137 mmol/L (136-145)
== END 2020-08-14 03:35 | disposition home or self-care (01) ==
LOC: LBO 03:35
PROVIDERS: PCP Family Medicine; Visit Provider Psychiatry & Neurology Neurology
DX: D35.2 Benign neoplasm of pituitary gland (principal)
CPT/HCPCS: 36415; 80048

== ENCOUNTER 2020-08-21 03:19 | Outpatient (CLI) | payer MEDICARE, OTHER, SELFPAY ==
[2020-08-21 09:03] LABS: Anion Gap 9.9 mmol/L (3-11); BUN 9 mg/dL (7-18); CO2 29.1 mmol/L (21.0-32.0); CREATININE 0.8 mg/dL (0.70-1.30); Chloride 99 mmol/L (98-107); Glucose 80 mg/dL (74-106); Potassium 4.2 mmol/L (3.5-5.1); Sodium 138 mmol/L (136-145)
== END 2020-08-21 03:20 | disposition home or self-care (01) ==
LOC: LBO 03:20
PROVIDERS: PCP Family Medicine; Visit Provider Psychiatry & Neurology Neurology
DX: D35.2 Benign neoplasm of pituitary gland (principal)
CPT/HCPCS: 36415; 80048

== ENCOUNTER 2020-10-24 03:07 | Outpatient (CLI) | payer MEDICARE, OTHER, SELFPAY ==
[2020-10-24 12:06] LABS: Abs Immature Grans 0.03 10^3/uL (0.0-0.06); Absolute Basophil Count 0.05 10^3/uL (0.0-0.2); Absolute Lymphocyte Count 1.44 10^3/uL (1.2-3.4); Absolute Neutrophil Count 6.61 10^3/uL (1.2-6.7); Basophils % 0.6; Eosinophils % 2.3; HCT 39.1 % (40.0-50.0); HGB 13.6 g/dL (13.5-17.5); Immature Grans % 0.3; Lymphocytes % 16.3; MCHC 34.8 % (32.0-36.0); MCV 86.3 fL (80-95); MPV 9.1 fL (8.0-11.0); Monocytes % 5.7; Neutrophils % 74.8; Nucleated RBC 0 %; Platelet Count 317 10^3/uL (130-400); RBC 4.53 10^6/uL (4.36-5.78); RDW 12.7 % (11.8-14.1); RDW-SD 40.2 fL; WBC 8.83 10^3/uL (4.4-10.8)
[2020-10-24 12:14] LABS: ALT 24 U/L (16-63); AST 21 U/L (15-37); Albumin 3.9 g/dL (3.4-5.0); Alkaline Phosphatase 107 U/L (46-116); Anion Gap 6.7 mmol/L (3-11); BUN 10 mg/dL (7-18); Bilirubin, Total 0.4 mg/dL (0.2-1.0); CO2 29.3 mmol/L (21.0-32.0); CREATININE 0.9 mg/dL (0.70-1.30); Calcium 8.6 mg/dL (8.5-10.1); Chloride 102 mmol/L (98-107); Glucose 128 mg/dL (74-106); Potassium 3.8 mmol/L (3.5-5.1); Sodium 138 mmol/L (136-145); Total Protein 6.9 g/dL (6.4-8.2)
[2020-10-24 12:32] LABS: T4 6.1 ug/mL (4.7-13.3)
[2020-10-26 10:46] LABS: Levetiracetam <2.0 mcg/mL
[2020-10-27 15:22] LABS: Testosterone, Total 320 ng/dL (240-950)
== END 2020-10-24 03:08 | disposition home or self-care (01) ==
LOC: LBO 03:07
PROVIDERS: PCP Family Medicine; Visit Provider Psychiatry & Neurology Neurology
DX: Z47.1 Aftercare following joint replacement surgery; Z96.642 Presence of left artificial hip joint; M76.32 Iliotibial band syndrome, left leg; E23.0 Hypopituitarism; E03.8 Other specified hypothyroidism; E29.1 Testicular hypofunction; D35.2 Benign neoplasm of pituitary gland; Z51.81 Encounter for therapeutic drug level monitoring
CPT/HCPCS: 36415; 80053; 84403; 99213; 80177; 84436; 85025

== ENCOUNTER 2020-10-24 10:10 | Outpatient (CLI) | payer MEDICARE, OTHER, SELFPAY ==
--- NOTE | 2020-10-24 08:45 | DI.RAD_ITS ---
Exam(s) XR HIP LT AP LAT ONLY EXAM: XR HIP LT AP LAT ONLY INDICATION: annual f/u L JASWANT. COMPARISON: CR XR HIP LT COMPLETE AP PELVIS from 11/13/2019 TECHNIQUE: 2D digital imaging was performed. FINDINGS: There has been no change in the alignment of the left hip prosthesis or appearance of the surrounding bone. DATA REPOSITORY: RADIATION DOSE DELIVERED:
== END 2020-10-24 10:11 | disposition home or self-care (01) ==
LOC: DIORS 10:11
PROVIDERS: PCP Family Medicine; Referring Provider Family Medicine; Visit Provider Student in an Organized Health Care Education/Training Program
DX: Z96.642 Presence of left artificial hip joint (principal); Z47.1 Aftercare following joint replacement surgery; M76.32 Iliotibial band syndrome, left leg; E23.0 Hypopituitarism; E03.8 Other specified hypothyroidism; E29.1 Testicular hypofunction; D35.2 Benign neoplasm of pituitary gland; Z51.81 Encounter for therapeutic drug level monitoring
CPT/HCPCS: 36415; 80053; 84403; 99213; 73502; 80177; 84436; 85025

== ENCOUNTER 2020-10-30 03:27 | Outpatient (CLI) | payer MEDICARE, OTHER, SELFPAY ==
[2020-11-01 13:03] LABS: Lamotrigine 8.1 mcg/mL (2.5 - 15.0)
== END 2020-10-30 03:28 | disposition home or self-care (01) ==
PROVIDERS: PCP Family Medicine; Visit Provider Psychiatry & Neurology Neurology
DX: D35.2 Benign neoplasm of pituitary gland (principal); Z51.81 Encounter for therapeutic drug level monitoring; Z79.899 Other long term (current) drug therapy
CPT/HCPCS: 36415; 80175

== ENCOUNTER 2021-06-09 09:56 | Outpatient (CLI) | payer MEDICARE, MEDICAID, SELFPAY ==
--- NOTE | 2021-06-09 09:00 | DI.RAD_ITS ---
Exam(s) XR HIP RT COMPLETE AP PELVIS EXAM: XR HIP RT COMPLETE AP PELVIS CLINICAL HISTORY: R hip pain. TECHNIQUE: 2D digital imaging was performed. COMPARISON: CR XR HIP LT AP LAT ONLY from 10/24/2020 FINDINGS: Left hip prosthesis again noted Findings of avascular necrosis right femoral head.. No loss of the normal femoral head contour. No joint space narrowing in the right hip. IMPRESSION: Right femoral head avascular necrosis findings DATA REPOSITORY: RADIATION DOSE DELIVERED:
== END 2021-06-09 09:57 | disposition home or self-care (01) ==
LOC: DIORS 09:56
PROVIDERS: PCP Family Medicine; Referring Provider Family Medicine; Visit Provider Student in an Organized Health Care Education/Training Program
DX: M25.551 Pain in right hip (principal); M76.32 Iliotibial band syndrome, left leg; M87.051 Idiopathic aseptic necrosis of right femur
CPT/HCPCS: 99214; 73502

== ENCOUNTER → 2021-07-22 07:50 | Outpatient (BNVA) | payer MEDICARE, MEDICAID, SELFPAY | PROVIDERS: PCP Family Medicine; Referring Provider Family Medicine | DX: Z01.818 Encounter for other preprocedural examination (principal); M87.051 Idiopathic aseptic necrosis of right femur ==

== ENCOUNTER 2021-07-28 01:28 | Outpatient (CLI) | payer MEDICARE, MEDICAID, SELFPAY ==
[2021-07-28 09:51] LABS: HCT 34.7 % (40.0-50.0); HGB 12.4 g/dL (13.5-17.5); MCHC 35.7 % (32.0-36.0); MCV 83.8 fL (80-95); MPV 8.9 fL (8.0-11.0); Platelet Count 332 10^3/uL (130-400); RBC 4.14 10^6/uL (4.36-5.78); RDW 12.4 % (11.8-14.1); RDW-SD 37.7 fL; WBC 9.18 10^3/uL (4.4-10.8)
[2021-07-28 10:56] LABS: BUN 9 mg/dL (7-18); CREATININE 0.8 mg/dL (0.70-1.30); Calcium 8.8 mg/dL (8.5-10.1); Chloride 94 mmol/L (98-107); Glucose 94 mg/dL (74-106); Potassium 3.6 mmol/L (3.5-5.1); Sodium 131 mmol/L (136-145)
[2021-07-28 11:29] LABS: FREE T4 0.67 ng/dL (0.76-1.46)
[2021-07-28 12:41] LABS: Source Nasal/Nares
[2021-07-28 22:31] LABS: COVID-19 PCR Negative (Negative)
[2021-07-29 09:31] LABS: HIV-1/2 Ag & Ab Screen Negative (Negative)
[2021-07-29 09:54] LABS: Hepatitis C Ab w Rflx HCV PCR Negative (Negative)
[2021-07-31 09:30] LABS: Testosterone, Total 232 ng/dL (240-950)
== END 2021-07-28 01:29 | disposition home or self-care (01) ==
LOC: LBO 01:28
PROVIDERS: PCP Family Medicine; Visit Provider Student in an Organized Health Care Education/Training Program
DX: D35.2 Benign neoplasm of pituitary gland (principal); Z11.59 Encounter for screening for other viral diseases; M87.051 Idiopathic aseptic necrosis of right femur; Z01.818 Encounter for other preprocedural examination; Z20.822 Contact with and (suspected) exposure to COVID-19; E23.6 Other disorders of pituitary gland; Z11.4 Encounter for screening for human immunodeficiency virus [HIV]
CPT/HCPCS: 80048; 84403; 85027; 86803; 86850; 86900; 86901; 87389; 87635; 84439

== ENCOUNTER 2021-07-29 09:51 | Day surgery (SDC) | payer MEDICARE, MEDICAID, SELFPAY ==
[2021-07-29] VITALS (12 sets, daily range): BP systolic 98–155; BP diastolic 64–93; PULSE 54–71; RESP 13–21; TEMP 36.2–36.3; O2SAT 97–100; BMI 22.4
--- NOTE | 2021-07-29 07:48 | W.PM.DSUDISC ---
Discharge Plan Disposition Patient Disposition: HOME Condition: Stable Discharge Details Reason For Visit: Right JASWANT Attending Provider: Jacques Baeza Primary Care Provider: Rayshawn Mcneill Home Meds and New Rx's Prescriptions: New aspirin 81 mg tablet,delayed release (DR/EC) 81 mg PO BID Qty: 60 0RF pantoprazole [Protonix] 40 mg tablet,delayed release (DR/EC) 40 mg PO DAILY Qty: 30 0RF ibuprofen 600 mg tablet 600 mg PO TID Qty: 90 0RF acetaminophen 500 mg capsule 1,000 mg PO Q8H PRN PRNQty: 90 0RF oxycodone 5 mg tablet 5 mg PO Q4H PRNQty: 18 0RF Continued sildenafil 50 mg tablet 50 mg PO DAILY PRN (Reason: sexual activity) Qty: 20 3RF Rx Instructions: administer 30 minutes to 4 hours before activity triamcinolone acetonide 0.1 % ointment 1 applic topical BID Qty: 80 1RF lamotrigine [Lamictal] 150 mg tablet 150 mg PO BID Qty: 180 3RF testosterone [AndroGel] 20.25 mg/1.25 gram (1.62 %) gel in metered-dose pump 1 pump topical DAILY 0RF Label Comments: 07/10/20 progress note Rx Instructions: apply 1 pump amount each over max area of ONE upper arm and shoulder meclizine 25 mg tablet 25 mg PO DAILY PRN (Reason: dizziness) Qty: 30 3RF levothyroxine 25 mcg tablet 25 mcg PO DAILY 0RF Label Comments: TAKE ONE TABLET BY MOUTH EVERY DAY acetaminophen 500 mg tablet 1,000 mg PO Q8H PRN (Reason: pain) Qty: 90 3RF ibuprofen 600 mg tablet 600 mg PO TID PRNQty: 90 3RF metformin 500 mg tablet 500 mg PO DAILY 0RF Label Comments: TAKE ONE TABLET BY MOUTH EVERY DAY Discharge Instructions Additional Instructions: Total Hip Discharge Instructions Activity: The most important activity is to walk. You should try to take short walks a few times a day. You have no restrictions on movement or positioning, but do not try to force what you do. You will find some stiffness and weakness with hip flexion (lifting your knee). Do not try to strengthen this too early, continue to practice walking and stairs and this will come. - Outpatient physical therapy can be helpful to help return you to a normal gait and improve your flexibility and strength. This can start around 2 weeks. For some patients, it?s not necessary. Usually this is determined at the time of discharge or at the first post-operative visit. - You should wear the HIEU hose on both legs for 2 weeks. Dressing: Keep the surgical dressing in place for at least one week. After the first week it may be removed and replace with light gauze and tape or nothing. It may get wet after 3 days but avoid soaking the dressing. If it gets wet, just lightly pat dry. It is important to always keep some gauze between skin folds, especially when you are sitting. Spend some time with the wound exposed when you are lying flat as the incision does wrinkle onto itself. Medications: - You should take Tylenol and an anti-inflammatory Celebrex as your primary pain control medications. If the Celebrex is too expensive or not covered, please call the office for another alternative (Advil/Ibuprofen or Naproxen/Aleve). - You have been prescribed a stronger pain medication Oxycodone for breakthrough pain, take as needed as prescribed. - You have also been prescribed a stomach acid reduction agent Pantoprozole to help reduce stomach acid and reflux. - You will be taking Aspirin 81mg twice a day for DVT prevention unless instructed otherwise. - If you have constipation you should take Colace or Miralax (both [id number]). It takes most people 3-4 days to have a bowel movement. Follow-up: 2 weeks If you have any acute concerns or questions, please do not hesitate to contact the office at [phone]. You may contact Dr. Baeza with any questions after hours through the hospital at [phone] or on his cell phone at [phone]. Referrals: Jacques Baeza MD [ [facility] STAFF PHYSICIAN] - Equipment/Supplies: Walker Activity:: Activity as Tolerated Remove Dressings/Wound Care:: Do Not Remove Shower/Bathe:: 72 hours Diet:: As Tolerated Discharge Orders Discharge Orders: Discharge Order (Routine); Ordered 07/29/21 Ordered By: Manisha Jenkins DS: Diagnosis Discharge Diagnosis (1) Avascular necrosis of bone of right hip: Status: Acute
--- NOTE | 2021-07-29 08:30 | DI.RAD_ITS ---
Exam(s) XR HIP RT IN OR EXAM: XR HIP RT IN OR CLINICAL HISTORY: Avascular necrosis of bone of right hip. TECHNIQUE: 2D and realtime digital imaging was performed. COMPARISON: CR XR HIP RT COMPLETE AP PELVIS from 06/09/2021 FINDINGS: Hard copy images show placement of a right hip prosthesis. The alignment appears satisfactory. Please see procedure note for details. Fluoro time 19 seconds RADIATION DOSE DELIVERED: Ka,r=1.97 mGy
--- NOTE | 2021-07-29 08:32 | W.ANESPRE ---
General Info Date of Service Date Performed: 07/29/21 Height: 5 ft 3.5 in Weight: 58.513 kg Body Mass Index (BMI): 22.4 Surgical Procedure: Operation Date: 07/29/21 11:50 Proposed Procedure Side Surgeon p Hip Total Hip Anterior Right Jacques Baeza MD Meds Allergies and Home Medications Allergies Allergy/AdvReac Type Severity Reaction Status Date / Time dexamethasone Allergy Severe Other (See Verified 07/29/21 10:07 Comment) Home Medication Medication Instructions Recorded levothyroxine 25 mcg tablet 25 mcg PO DAILY 10/23/19 acetaminophen 500 mg tablet 1,000 mg PO Q8H PRN #90 tab 10/25/19 ibuprofen 600 mg tablet 600 mg PO TID PRN #90 tab 10/25/19 sildenafil 50 mg tablet 50 mg PO DAILY PRN #20 tab 04/15/20 lamotrigine 150 mg tablet 150 mg PO BID #180 tab 07/15/21 (Lamictal) testosterone 20.25 mg/1.25 gram 1 pump TOPICAL DAILY 07/15/21 (1.62 %) transdermal gel pump (AndroGel) triamcinolone acetonide 0.1 % 1 applic TOPICAL BID #80 g 07/15/21 topical ointment meclizine 25 mg tablet 25 mg PO DAILY PRN #30 tab 07/17/21 acetaminophen 500 mg capsule 1,000 mg PO Q8H PRN PRN #90 cap 07/29/21 aspirin 81 mg tablet,delayed 81 mg PO BID #60 tab 07/29/21 release ibuprofen 600 mg tablet 600 mg PO TID #90 tab 07/29/21 metformin 500 mg tablet 500 mg PO DAILY 07/29/21 oxycodone 5 mg tablet 5 mg PO Q4H PRN #18 tab 07/29/21 pantoprazole 40 mg tablet,delayed 40 mg PO DAILY #30 tab 07/29/21 release (Protonix) Current Visit Medications: Current Medications Generic Name Dose Route Start Last Admin Trade Name Freq PRN Reason Stop Dose Admin Acetaminophen 1,000 mg 07/29/21 06:00 Acetaminophen 500 Mg Tab PO 07/29/21 16:00 PREOP GISSEL Acetaminophen 1,000 mg 07/29/21 14:00 Acetaminophen 500 Mg Tab PO TID GISSEL Aspirin 81 mg 07/29/21 20:00 Aspirin E.C. 81 Mg Tabec PO BID [facility] Celecoxib 400 mg 07/29/21 06:00 Celecoxib 200 Mg Cap PO 07/29/21 16:00 PREOP GISSEL Celecoxib 200 mg 07/29/21 20:00 Celecoxib 200 Mg Cap PO BID GISSEL Docusate Sodium 100 mg 07/29/21 07:47 Docusate Sodium 100 Mg Cap PO BID PRN PRN Constipation Hydromorphone HCl 0.5 mg 07/29/21 07:47 Hydromorphone 2 Mg/Ml Vial IVP Q2H PRN PRN Tranexamic Acid 1,000 mg/ 60 mls @ 360 mls/hr 07/29/21 06:00 Sodium Chloride IV 07/29/21 16:00 PREOP GISSEL Ringer's Solution 1,000 mls @ 80 mls/hr 07/29/21 06:00 IV 08/27/21 23:59 INFUSION GISSEL Cefazolin Sodium/Dextrose 2 gm in 50 mls @ 100 mls/hr 07/29/21 06:00 Ancef Duplex IVPB 07/29/21 16:00 PREOP GISSEL Cefazolin Sodium/Dextrose 1 gm in 50 mls @ 100 mls/hr 07/29/21 17:00 Ancef Duplex IVPB 07/30/21 09:29 Q8H GISSEL IV Miscellaneous Supplies 1 each 07/29/21 06:00 Iv Access IV 08/27/21 23:59 DIRECTED GISSEL Ondansetron HCl 4 mg 07/29/21 07:47 Ondansetron 4 Mg/2 Ml Vial IVP Q6H PRN PRN Nausea Oxycodone HCl 0 mg 07/29/21 07:47 Oxycodone 5 Mg Tab PO Q3H PRN PRN Pain Sodium Chloride 0 ml 07/29/21 06:00 Normal Saline Flush 10 Ml Syr IV 08/27/21 23:59 PRN PRN Sodium Chloride 0 ml 07/29/21 06:00 Normal Saline 10 Ml Vial IJ 08/27/21 23:59 DIRECTED PRN Sterile Water 0 ml 07/29/21 06:00 Water,Injection,Sterile 10 Ml Vial IJ 08/27/21 23:59 DIRECTED PRN PFSH Active Problems Active Problems: Problem Status Onset Code ANN MARIE (obstructive sleep apnea) G47.33 Trigger thumb of right hand M65.311 Eczema L30.9 Avascular necrosis of bone of right hip M87.051 Iliotibial band syndrome, left leg M76.32 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 Left knee pain M25.562 Irritant contact dermatitis L24.9 Overgrown toenails L60.2 Vertigo R42 Pituitary tumor D49.7 Medical History Medical History (Updated 07/29/21 @ 10:43 by Francine Sainz) 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 History of lumbar puncture within last 21 days 07/29/21 Pt reports recent lumbar puncture procedure d/t CSF leaking from nares Visual field defect Surgical History Surgical History Pituitary macroadenoma S/P Transsphenoidal Endoscopic Resection : 05/12/17 Status post left hip replacement (10/25/19) Tobacco Smoking/Tobacco Use Status: Current every day Tobacco Type: cigarettes Years smoked: 28 and e-cigarettes Smokeless tobacco user: other Alcohol Alcohol Intake: current Alcohol intake frequency: a few times a month Alcohol type: beer Substance Use Substance use: Daily Substance use type: marijuana Vital Signs and Lab Results Lab Results Blood Type / Crossmatch: Patient ABO/Rh O Positive 07/28/21 Antibody Screen NEGATIVE 07/28/21 Complete Blood Count: White Blood Count 9.18 10^3/uL (4.4-10.8) 07/28/21 09:37 07/28/21 Red Blood Count 4.14 10^6/uL (4.36-5.78) L 07/28/21 09:37 07/28/21 Hemoglobin 12.4 g/dL (13.5-17.5) L 07/28/21 09:37 07/28/21 Hematocrit 34.7 % (40.0-50.0) L 07/28/21 09:37 07/28/21 Platelet Count 332 10^3/uL (130-400) 07/28/21 09:37 07/28/21 Complete Metabolic Panel: Sodium Level 131 mmol/L (136-145) L 07/28/21 09:37 07/28/21 Potassium Level 3.6 mmol/L (3.5-5.1) 07/28/21 09:37 07/28/21 Chloride Level 94 mmol/L (98-107) L 07/28/21 09:37 07/28/21 Carbon Dioxide Level 26.0 mmol/L (21.0-32.0) 07/28/21 09:37 07/28/21 Blood Urea Nitrogen 9 mg/dL (7-18) 07/28/21 09:37 07/28/21 Creatinine 0.8 mg/dL (0.70-1.30) 07/28/21 09:37 07/28/21 Estimated GFR/1.73 m2 >= 60.00 (mL/min/1.73m2) 07/28/21 09:37 07/28/21 Calcium Level 8.8 mg/dL (8.5-10.1) 07/28/21 09:37 07/28/21 Glucose Level 94 mg/dL (74-106) 07/28/21 09:37 07/28/21 Liver Function Panel: No Data to Display Coagulation Panel: No Data to Display Cardiac Panel: No Data to Display Arterial Blood Gas: No Data to Display Venous Blood Gas: No Data to Display Pancreas Panel: No Data to Display Thyroid Panel: No Data to Display Infectious Disease: Coronavirus (COVID-19)(PCR) Negative (Negative) 07/28/21 09:47 07/28/21 Coronavirus 2019 Source Nasal/Nares 07/28/21 09:47 07/28/21 HIV (1&2) Ag and Ab, 4th Generation Negative (Negative) 07/28/21 09:37 07/28/21 Hepatitis C Antibody Negative (Negative) 07/28/21 09:37 07/28/21 Blood Cultures: No Data to Display Toxicology Panel: No Data to Display Anesthesia Assessment and Plan Anesthesia History Personal History: No History of Anesthesia Complications Family History: No Family History of Anesthesia Complications Exercise Tolerance Exercise Tolerance: Metabolic Equivalents>4 Pertinent Negatives Pertinent Negatives: No Major Cardiovascular Symptoms or Complaints, No Major Pulmonary Symptoms or Complaints and No History of CVA/TIA Cardiac & Pulmonary Exam Cardiac Exam: Normal S1/S2 Heart Sounds Pulmonary Exam: Clear Bilateral Breath Sounds Implantable Cardiac Device Does patient have a Pacemaker or an ICD?: No Airway Exam Known Difficult Airway: No Mallampati Class: 3 Mouth Opening: Normal (> 3cm) Thyromental Distance: Greater than 3 cm Neck Range of Motion: Full ROM Neck Circumference: Normal Teeth Condition: Edentulous (except for one tooth) Tooth Numberin. last remaining tooth ASA Classification ASA Score: ASA 3 Emergency Case?: No NPO Status NPO Status: NPO Clears >2 hours, Solids >8 hours Anesthesia Plan Resuscitation Status: Full Code Anesthesia Technique: Spinal Anesthesia Airway Planned: Natural Airway Monitors Used: Standard Monitors
[2021-07-29] MEDS: Celecoxib 200 MG CAP 400 MG PO (10:23)
[2021-07-29] MEDS: Acetaminophen 500 MG TAB 1000 MG PO (10:24)
[2021-07-29] MEDS: Lactated Ringers 1,000 ML 80 ML IV (10:35)
[2021-07-29] MEDS: ceFAZolin 2 GM/50 ML BAG IVPB (11:30)
[2021-07-29] MEDS: Bupivacaine 0.25% Pres-Free 30 ML VIAL (12:44)
[2021-07-29] MEDS: Ketorolac 30 MG/ML VIAL (12:44)
[2021-07-29] MEDS: oxyCODONE 5 MG TAB PO (14:52)
[2021-07-29] MEDS: HYDROmorphone 2 MG/ML VIAL 0.5 MG IVP (15:23)
--- NOTE | 2021-07-29 16:15 | IN_ITS ---
Date of service: 07/29/21 Time of Service: 16:15 PT Notes Visit Reasons: Right [facility] Inpatient Initial Evaluation Date: 07/29/2021 Referring Doctor: ENRIKE Dixon PT Orders: PT CONSULT: Status post Ortho surgery. Precautions: Standard.? WBAT on right LE Patient Profile/Admitting Diagnosis: Espinoza is a 46-year-old male with past medical history significant for pituitary macroadenoma with avascular necrosis of the right hip and is status post right anterior total hip arthroplasty on postoperative day 0. PMHX: Medical History? 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 Pituitary macroadenoma S/P Transsphenoidal Endoscopic Resection : 05/12/17Status post left hip replacement (10/25/19) Social History/Home Situation: Patient lives with in a single floor house with a ramp to enter.? He states that the house had been made handicap accessible to accommodate caring for both of his grandparents a while back.? 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 Patient was independent with all aspects of ADLs without an assistive ambulatory device nor adaptive equipment. Equipment Owned/DME: [facility] Subjective: Espinoza reports 5/10 pain and stiffness in the R hip. Complains of mild lightheadedness that subsided with activity. Reports numbeness in both buttocks that subsided with ambulation. Objective: General Observation: Mepilex Ag over surgical incision. Mental Status: Alert and oriented x4 Pain: 5/10 in left hip Vital Signs: Within normal limits as monitored by nursing staff before and after PT session ROM: Right Lower Extremity: Hip flexion allows up to 30 degrees beyond 90 while seated at edge of bed. Hip abduction WFL. Knee flexion WFL. Ankle dorsiflexion WFL. Ankle plantarflexion WFL. Left Lower Extremity: Hip flexion WFL. Hip abduction WFL. Knee flexion WFL. Ank le dorsiflexion WFL. Ankle plantarflexion WFL. Strength: Right Lower Extremity: Hip flexors 3-/5. Hip abductors 4-/5. Knee flexors 4/5. Knee extensors 4-/5. Ankle dorsiflexors 5/5. Ankle plantarflexors 5/5. Left Lower Extremity: Hip flexors 5/5. Hip abductors 5/5. Knee flexors 5/5. Knee extensors 5/5. Ankle dorsiflexors 5/5. Ankle plantarflexors 5/5. Sensation: Intact as to pain and pressure on bilateral lower extremities. Numbness in B gluteal areas. Bed Mobility/Transfers: Supine to sit standby Sit to supine standby Sit to stand contact-guard assist using BUE for support, requires use of front wheeled walker Stand to sit standby assist using BUE for support Bed to chair standby assist using BUE for support, requires use of front wheeled walker Chair to bed standby assist using BUE for support, requires use of front wheeled walker Gait: Patient tolerated level surface ambulation of 100 feet using front-wheeled walker with step-through gait pattern requiring only standby assist from PT.? Nurses Francine and Radha assisting alternately with wheelchair follow for safety. WBAT on B LE. MInimal cues provided for correct technique. Stairs: Down 6 x 4 inch steps and 4 x 6 inch steps holding onto bilateral rails with step to gait pattern requiring standby assist only without increase in pain reported. Balance: Static Sitting: Normal Dynamic Sitting: Normal Static Standing: Fair Dynamic Standing: Fair Special Tests: Mobility Limitations Standardized Measure [facility] 6 clicks Basic Mobility Inpatient Short Form: Raw Score: 22? CMS Score: 21% deficit? ? ? Informed Consent/Education:? Patient instructed in purpose of PT consult and plan of care. Assessment: Espinoza presents with functional mobility decline, need for an assistive ambulatory device for all mobility ADL performance, balance impairment, weakness and strength deficit resulting from postoperative status. 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 Patient presents with clinical signs and symptoms consistent with current/admitting diagnoses that have resulted to mobility limitations, gait instability, generalized weakness, and impairment of motor control as demonstrated by the following impairment level findings: 1.? Decreased strength to right hip major muscle groups 2.? Impaired standing balance 3.? Impaired activity tolerance 4.? Limitation of joint range of motion in right hip Impairments are contributing to the following functional limitations: 1.? Inability to safely ambulate without assistive device and physical assistance 2.? Increase completion time for mobility ADL performance 3.? Increased fall risk Patient is assessed as a 67984 moderate complexity based on the following: History: 44 [id number]? with impairment level findings, functional limitations, and past medical history as indicated above Examination: Demonstrable impairment in strength, balance, and mobility level with underlying impairments and functional limitations as documented above Presentation:Evolving Decision Makin moderate complexity Goals: N/A. PT evaluation and 1 treatment only for HEP instruction and for functional mobility training. Plan of Care/Treatment Plan: N/A. PT evaluation and 1 treatment only for HEP instruction and for functional mobility training. DISCHARGE RECOMMENDATIONS: [] Home with no services [] [] Home with services [specify] [X] Home with outpatient PT. Home when medically cleared by orthopedic surgeon. Will highly benefit from outpatient PT services in order to facilitate return to unassisted ambulation. [] SNF for continued rehabilitation [] [] [facility] [] [] SNF versus LTC based on ability to participate and progress [] TREATMENT CODE/TIME: 72548 x 20 minutes, 9753 0 x 11 minutes beginning at 16:15 PM. Thank you for the opportunity to participate in the care of this patient. Claritza Swann PT, DPT, CLT [facility] [place], [place]
--- NOTE | 2021-07-29 18:10 | W.ANESPOSTOP ---
Postoperative Evaluation Date, Time and Location Date Performed: 07/29/21 Time Performed: 18:11 Patient Location: Day Surgery Unit Vital Signs Most Recent Imported Vital Signs: Most Recent Vital Signs Temp Pulse Resp BP Pulse Ox 36.3 C L 60 15 121/83 98 07/29/21 16:00 07/29/21 16:00 07/29/21 16:00 07/29/21 16:00 07/29/21 16:00 Pain Score Most Recent Pain Score: Most Recent Pain Score Pain Level 4 07/29/21 16:00 Assessment Mental Status: Awake (Alert & Oriented to Patient Baseline) Airway and Respiratory Function: Patent airway with normal (patient baseline) respiratory exam Cardiovascular Function: Hemodynamically Stable Hydration Status: Adequately Hydrated Nausea & Vomiting: No Nausea or Vomiting Pain: Pain is tolerable per patient Peripheral Nerve Block: Patient did not receive a nerve block Postoperative Comments:: Per Nursing patient spinal wore off appropriately and was appropriate for discharge. I was the sole provider here at time of D/C and unable to see patient due to being in the operating room.
--- NOTE | 2021-07-29 22:49 | ROE_ITS ---
Date of service: 07/29/21 Time of Service: 12:45 Operative Note Operative Note DATE OF PROCEDURE: 07/29/21 PRE-OP DIAGNOSIS: Right Hip Osteonecrosis POST-OP DIAGNOSIS: same PROCEDURE: Right Anterior Total Hip Arthroplasty with Intraoperative Navigation SURGEON: Jacques Baeza BLOWN FILM EXTRUSION OPERATOR: Manisha Jenkins Refer to Anesthesia Record ESTIMATED BLOOD LOSS: 100 PATHOLOGY: none sent COMPLICATIONS: None Patient was transported to: PACU Patient's condition: stable Implants: 1. Depuy [place] Acetabular Component, 50mm 2. Depuy Acetabular Liner, [id number] 3. Depuy Corail Standard 125 degree Collared Femoral Stem, Size 10 4. Depuy Altrx Ceramic Femoral Head, Size 32+5mm Indications: I have seen Kurt in clinic for symptoms of hip pain and osteonecrosis, confirmed with radiographic findings. He had a succesful JASWANT on the left side for the same diagnosis. He has exhausted nonoperative methods and was having significant limitations in daily function and desired better function and less pain. I discussed the technical details of a hip replacement. I explained the risks of the procedure to include, but not limited to, bleeding, infection, pain, stiffness, fracture, damage to nerves and vessels, damage to muscles and tendons, loosening, instability, leg length inequality, need for repeat procedure, blood clot and cardiopulmonary demise. Despite these risks, Kurt elected to proceed. Findings: The superior weight bearing portion of the femoral head had some laminated cartilage and soft underlying bone direct sales representative of the osteonecrosis. Procedure Description: Kurt was greeted in the preoperative holding area where the correct side was identified and marked. The consent was reviewed with the patient and signed. The history and physical was updated. All questions were answered. He was taken back to the operating room. A spinal anesthestic was then administered. The feet were wrapped with cast padding and Coban and then placed into the boot liners and then into the boots. Care was taken to protect the skin and make sure the heels were fully down and the boots were stable. The patient was then positioned onto the HANA table. Both legs were held in a neutral position. SCDs were applied. The patient was then slid down onto a peroneal post. Prophylactic antibiotics in the form of Cefazolin were administered. 1g of Tranxemic Acid was given intravenously within 30 minutes of incision. The right leg was then prepped with Chloraprep and draped in a standard fashion. A second prep with Chloraprep was performed prior to placement of a shower-curtain type drape with Iodine impregnated skin protection. A timeout to confirm correct identity, side and site, procedure, allergies, anesthesia, and medical concerns was performed. An obliquely oriented incision was made starting lateral to the ASIS and running distal over the Tensor Fascia Priyanka (TFL) muscle belly toward the fibular head, approximately 10cm. The skin and soft tissue was dissected sharply, through Fazal?s fascia, and to the fascia of the TFL. With the fascia and superior border of the IT band identified, the fascia was incised with a new knife just above any perforators from the IT band. The TFL muscle belly was bluntly dissected away from the fascia and moved laterally. The fat between TFL and rectus was identified to ensure the dissection was not within the TFL. Blunt dissection created space between abductors and the capsule and retractor was placed over the lateral femoral neck. The fibers of the rectus femoris tendon were identified and these were freed from the anterior capsule. A second cobra retractor was placed around the medial femoral neck. The TFL was further retracted laterally to show the deep fascia. Careful dissection through this layer identified three main crossing vessels of the lateral femoral circumflex. These were cauterized in multiple locations and then cut without any noticeable bleeding. The TFL was further released bluntly from the deep fascia to expose anterior hip capsule and fat The Demario orthopaedic retractor was then placed beneath the TFL and against sartorius and medial soft tissues to protect and retract the soft tissues. A T-capsulotomy was then performed starting at the superior lateral acetabulum and moving distally to the intertrochanteric ridge. These capsular flaps were tagged with a No. 1 Ethibond and elevated from within. The capsular flaps were released to the shoulder of the lateral neck and to the lesser trochanter to give excellent visualization of the proximal femur. A neck osteotomy was performed using an oscillating saw based on preoperative templates. This cut started in the shoulder and of the lateral neck and exited medially. The saw was at all times directed medially to avoid injury to the greater trochanter. Gross traction was applied to the leg and the osteotomy opened. The femoral head was removed with a corkscrew, making sure to protect the TFL on its exit. Traction was released after head removal. This was measured on the back table to determine the starting reamer size. There was a soft portion of cartilage with some delamination and soft underlying bone in the superior weight bearing portion of the femoral head. Portions of the rectus obscuring visualization were minimally elevated off the superior acetabulum. An anterior retractor was placed over the anterior wall between capsule and labrum and attached to the Gripper retraction system. The femur was rotated to 90 degrees and medial capsule was fully released until the lesser trochanter was palpable and visible; the femur was returned to 30 degrees. A posterior retractor was placed similarly between capsule and labrum. This provided excellent visualization. The contents of the cotyloid fossa were removed with electrocautery and the labrum was removed with a knife. Acetabular reaming began with a 46mm reamer. This first reaming was directed anterior to posterior and medial to get down to the true floor. This was inspected and reamed until the true floor was reached. The anterior retractor was then released and entry and exit was provided by traction on the capsular flaps. I then reamed sequentially up to a 50mm reamer where good fit was obtained. The larger reamers were oriented based on anatomical reference of the anterior and lateral lepe to ensure proper abduction and anteversion. Positioning and size was confirmed with the fluoroscopy. A 50mm Depuy [place] acetabular component was selected. The acetabulum was reamed around the periphery with the selected acetabular size to prevent a rim fit. The deep tissues were irrigated. The acetabular component was then impacted in a position of about 40-45 degrees of abduction and 15-20 degrees of anteversion, using the patient?s anatomy as the ultimate landmark. Fluoroscopy was used to confirm this. There was excellent machine deburrer of the acetabular component and the inserting handle was removed. The acetabular liner, Depuy [id number] polyethylene liner, was inserted and lined up with the tines of the acetabular component. There was no soft tissue interposition. The liner was then impacted into position and confirmed to be well-seated. A portion of the kwabena-articular cocktail was then injected around the acetabulum into the capsule and periosteum. This cocktail consisted of 50cc of 0.25% Bupivicaine and 20cc of Exparel and 30mg of Ketorolac. The leg was rotated to 120 degrees. Any remaining medial capsule was released until the lesser trochanter was easily palpable. A retractor was placed medial ly. The lateral capsule was further released into the shoulder to allow access to the greater trochanter. A Ruano retractor was placed over the greater trochanter which allowed the trochanter to flip in front of the capsule for excellent exposure. The leg was brought down into maximal extension and 20 degrees of adduction while ensuring there was no impingement on the acetabulum. Any remnant capsule within the trochanter was released. Piriformis and obturator externis were identified and protected. There was excellent access to the proximal femur. The lateral neck remnant was removed with a rongeur. A blunt canal probe was used to identify the canal and trajectory for later broaching. A box osteotome initiated the broach course. A small curved rasp and a curved curette were used to work laterally. Broaching then began with a size 8 [place] broach. This was inserted manually around the trochanter and into the canal before mallet blows. The broach was seated to a few millimeters below the cut level based on the neck cut and the preoperative template. Sequential broaching was continued with the eriQoose pneumatic broaching device until a tight fit was obtained with good rotational control of the femur. A trial standard neck was inserted along with a +1 trial head. The leg was brought out of extension and adduction and then reduced with traction and internal rotation. The leg was stable anteriorly in a position of 30 degrees of extension and 90 degrees of external rotation. Fluoroscopy was used to ensure there was no fracture and the stem was seated well. Leg lengths were checked with an AP pelvis and pelvic reference points. Social IQ (Social Influence Quotient) navigation system was used to confirm appropriate positioning and leg length and offset. The stem was slightly higher than I had planned but by going to a 125degree neck I would gain correct offset and leg length. Once content with the desired offset and leg lengths, the leg was brought back into extension, external rotation and adduction. The periosteum and surrounding tissue was injected with remaining portion of the kwabena-articular cocktail. The proximal femur was irrigated as well as the deep tissues. The [employer] Corail standard 125 degree collared stem, size 10, was then manually inserted into the proximal femur making sure to control rotation. It was then malleted into position with light blows, giving breaks to allow bone expansion and decrease risk of fracture. The selected Depuy Altrx Ceramic Head, size 32+5mm, was then placed onto the clean and dry trunnion and secured with impaction onto the tapered fit. The leg was brought back out of extension and adduction and reduced with traction and internal rotation. Stability was confirmed with no shuck at 90 degrees of external rotation and 30 degrees of extension. No impingement through range of motion arc. Final x-ray images were obtained with fluoroscopy to confirm adequate positioning and no intraoperative fracture. The deep tissues were thoroughly irrigated with Surgiphor betadine solution. It was allowed to sit in the wound for 3 minutes and then it was irrigated out with saline. The capsule was then reapproximated with the previously placed Ethibond sutures. The TFL fascia was finally closed with a No. 2 Stratafix, barbed suture. Deep tissues were then reapproximated with 0 Vicryl and a running 2-0 Vicryl. The skin was closed with a running 4-0 Monocryl in a subcuticular fashion. This was reinforced with skin glue. A Mepilex silver dressing was applied. At the end of the case, all counts were correct. Kurt was transferred to the hospital bed without difficulty and suffering no apparent complication. He has a good prognosis. Physical therapy will start today and without restrictions, weight-bearing as tolerated. Aspirin 81mg BID will be used for DVT prophylaxis.
== END 2021-07-29 17:20 | disposition home or self-care (01) ==
LOC: SUR 09:52
PROVIDERS: PCP Family Medicine; Visit Provider Student in an Organized Health Care Education/Training Program
PROC: (CPT 27130; principal; 2021-07-29 11:30)
DX: M87.851 Other osteonecrosis, right femur (principal); G47.33 Obstructive sleep apnea (adult) (pediatric)
CPT/HCPCS: 20985; 27130; C1776; 73501; J0690; J1885; J2001; J2250; J2370; J2405; J3010

== ENCOUNTER 2021-08-11 11:26 | Outpatient (CLI) | payer MEDICARE, MEDICAID, SELFPAY ==
--- NOTE | 2021-08-11 10:45 | DI.RAD_ITS ---
Exam(s) XR HIP RT COMPLETE AP PELVIS EXAM: XR HIP RT COMPLETE AP PELVIS INDICATION: 1ST POST OP R JASWANT. COMPARISON: CR XR HIP RT COMPLETE AP PELVIS from 06/09/2021 XA XR HIP RT IN OR from 07/29/2021 TECHNIQUE: 2D digital imaging was performed. Three views. FINDINGS: There has been no change in the alignment of the bilateral hip prostheses. There are no abnormal bon y lucencies. DATA REPOSITORY: RADIATION DOSE DELIVERED:
== END 2021-08-11 11:27 | disposition home or self-care (01) ==
LOC: DIORS 11:26
PROVIDERS: PCP Family Medicine; Referring Provider Family Medicine; Visit Provider Student in an Organized Health Care Education/Training Program
DX: Z96.641 Presence of right artificial hip joint (principal); Z47.1 Aftercare following joint replacement surgery
CPT/HCPCS: 73502

== ENCOUNTER 2021-08-18 21:52 | Emergency (ER) | payer MEDICARE, MEDICAID, SELFPAY ==
[2021-08-18 21:55] VITALS: BP 123/76; PULSE 78; RESP 14; TEMP 36.7; O2SAT 100
[2021-08-18 21:56] VITALS: BP 123/76; PULSE 95; RESP 19; O2SAT 98
[2021-08-18 21:59] VITALS: RESP 18
--- NOTE | 2021-08-18 22:15 | RT.EKG_ITS ---
APPROVED REPORT Exam: Resting ECG Reason for Exam: Syncope Patient Location: E HR:77 bpm ECG Measurements Heart Rate 77 AXIS CO 149 P 72 QRSd 93 QRS 63 QT 332 T [id number] QTc 377 Conclusion Sinus rhythm...normal P axis, V-rate 60- 99 Borderline T abnormalities, diffuse leads...T flat/neg
--- NOTE | 2021-08-18 22:15 | DI.CT_ITS ---
Exam(s) CT HEAD WO EXAM: CT HEAD WO CLINICAL HISTORY: Syncope. TECHNIQUE: Imaging Protocol: Axial computed tomography images with coronal and sagittal reformatted images were created and reviewed COMPARISON: No exams were available for comparison FINDINGS: Ventricles and Extra axial spaces: Normal in size and morphology for the patient's age. Hemorrhage: None. Cerebral parenchyma: Normal. Midline shift: None. Brainstem/Cerebellum: Normal. Calvarium: No acute fracture. Postsurgical changes seen in the pituitary sella and the sphenoid cons istent with pituitary resection. There is mucosal thickening seen in the sphenoid sinus cavity. The re is also opacification of a few ethmoid air cells and a fluid level in the right maxillary sinus. Visualized Paranasal sinuses/Mastoids: Clear. Soft Tissues: Unremarkable. IMPRESSION: No acute intracranial process. RADIATION DOSE DELIVERED: 719.88mGy.cm Total DLP DATA REPOSITORY: All CT scans at this facility are submitted to the National Radiology Data Registry (NRDR) Dose Index Registry (DIR) with the [employer] ([employer]). RADIATION OPTIMIZATION: All CT scans at this facility use at least one of these dose optimization te chniques: automated exposure control; mA and/or kV adjustment per patient size (includes targeted exa ms where dose is matched to clinical indication); or iterative reconstruction.
[2021-08-18 22:24] VITALS: BP 110/73; PULSE 78; RESP 14; O2SAT 98
[2021-08-18 22:30] VITALS: BP 109/76; PULSE 89; RESP 17; O2SAT 98
--- NOTE | 2021-08-18 22:30 | DI.CT_ITS ---
Exam(s) CT ABDOMEN PELVIS W EXAM: CT ABDOMEN PELVIS W CLINICAL HISTORY: Recent Hip surgery, R/O abscess, Abd pain TECHNIQUE: Imaging Protocol: Axial computed tomography images with coronal and sagittal reformatted images were created and reviewed CONTRAST MATERIAL: Intravenous: Omnipaque 350 Contrast volume:91 mL Oral: No COMPARISON: No exams were available for comparison FINDINGS: ABDOMEN: Lung Bases: Mild dependent atelectasis. Liver: Normal density. No measurable mass. Portal, Superior Mesenteric, and Splenic Veins: Unremarkable. Gallbladder and Biliary Tract: No radiodense calculus or dilation. Pancreas: Normal density, no abnormal calcifications or inflammatory process. Spleen: Normal. Adrenals: No masses seen. Kidneys: Normal size, contour and axis. No radiodense stones or obstructive uropathy. No masses seen. Abdominal Aorta: Abdominal portion non-dilated. Atherosclerosis. Bowel: No obstruction or bowel wall thickening. Appendix is unremarkable. Peritoneal Cavity: No ascites, collection or mesenteric inflammatory response. No free air. Lymph Nodes: Within normal limits. Bones: Within normal limits for the patient's age. Patient has bilateral total hip replacements. Th ere is L5 spondylolysis and grade 1 spondylolisthesis of L5 on S1. Soft Tissues: Mild postsurgical changes in the soft tissues adjacent to the right hip consistent with the patient's recent right total hip replacement. No focal fluid collection is seen to suggest an a bscess. PELVIS: Bladder: Symmetric distention, no gross wall thickening. Reproductive Organs: Grossly unremarkable. There is limited visualization due to artifact from the p atient's hip prostheses. Lymph Nodes: Within normal limits. Bones: Within normal limits for the patient's age. IMPRESSION: 1. No acute abdominal or pelvic process. 2. Findings consistent with recent right total hip replacement. No evidence of an abscess. RADIATION DOSE DELIVERED: 554.19mGy.cm Total DLP DATA REPOSITORY: All CT scans at this facility are submitted to the National Radiology Data Registry (NRDR) Dose Index Registry (DIR) with the [employer] ([employer]). RADIATION OPTIMIZATION: All CT scans at this facility use at least one of these dose optimization te chniques: automated exposure control; mA and/or kV adjustment per patient size (includes targeted exa ms where dose is matched to clinical indication); or iterative reconstruction.
--- NOTE | 2021-08-18 22:38 | ED.GENADUL_ITS ---
Discharge Plan Disposition Patient Disposition: HOME Condition: Stable Discharge Details Clinical Impression: Syncope Primary Care Provider: Rayshawn Mcneill ED Provider: Toña Brito Home Meds and New Rx's Prescriptions: Continued lamotrigine [Lamictal] 150 mg tablet 150 mg PO BID Qty: 180 3RF meclizine 25 mg tablet 25 mg PO DAILY PRN (Reason: dizziness) Qty: 30 3RF levothyroxine 25 mcg tablet 25 mcg PO DAILY 0RF Label Comments: TAKE ONE TABLET BY MOUTH EVERY DAY acetaminophen 500 mg tablet 1,000 mg PO Q8H PRN (Reason: pain) Qty: 90 3RF ibuprofen 600 mg tablet 600 mg PO TID PRNQty: 90 3RF aspirin 81 mg tablet,delayed release (DR/EC) 81 mg PO BID Qty: 60 0RF pantoprazole [Protonix] 40 mg tablet,delayed release (DR/EC) 40 mg PO DAILY Qty: 30 0RF metformin 500 mg tablet 500 mg PO DAILY 0RF Label Comments: TAKE ONE TABLET BY MOUTH EVERY DAY No Action triamcinolone acetonide 0.1 % ointment 1 applic topical BID Qty: 80 1RF testosterone [AndroGel] 20.25 mg/1.25 gram (1.62 %) gel in metered-dose pump 1 pump topical DAILY 0RF Label Comments: 07/10/20 progress note Rx Instructions: apply 1 pump amount each over max area of ONE upper arm and shoulder sildenafil 50 mg tablet 50 mg PO DAILY PRN (Reason: sexual activity) Qty: 20 3RF Rx Instructions: administer 30 minutes to 4 hours before activity ibuprofen 600 mg tablet 600 mg PO TID Qty: 90 0RF acetaminophen 500 mg capsule 1,000 mg PO Q8H PRN PRNQty: 90 0RF oxycodone 5 mg tablet 5 mg PO Q4H PRNQty: 18 0RF Discharge Instructions Instructions: Syncope (ED) Additional Instructions: At this time cardiac work-up within normal limits. Sodium slightly low however you were given IV fluids with sodium in it. Your hemoglobin slightly low but not any emergent need for transfusion. You Did appear to be slightly dehydrated. CT abdomen pelvis shows no evidence for emergent condition or abscess near your hip. I did ask radiology to send CT images to [facility] for your follow-up appointment so they will have those images. I will call you tomorrow if you need any further treatment. Referrals: Rayshawn Mcneill DO [Primary Care Provider] - 1 week Discharge Data Discharge Date/Time-TO BE ENTERED AT DEPARTURE: 08/19/21 01:23 Medical Decision Making 46-year-old male with a history of a pituitary tumor, pituitary macroadenoma, vertigo, obstructive sleep apnea status post a recent right hip [facility] 07[facility] with chief complaint of syncopal episode prior to arrival. Patient states that he had gotten up to get something and had sat back down in his chair and he felt nauseated and dizzy and then next thing he knew EMS was there. His reports that she came out of the bathroom and found him slumped over in the chair pale, diaphoretic and drooling. EMS reports that on scene patient was hypotensive with systolic blood pressure in the 70s, patient was placed supine and blood pressure improved. BGL was approximately 128 on scene. Upon my initial examination patient is pale, alert and oriented, complaining of head pressure which he reports is not new for him. He does endorse nausea today and intermittent loose stools and constipation. Of note there is some mild surrounding erythema noted to the right hip incision. reports that it was draining however, no active drainage noted on my exam. Patient has his right hip in a flexed position. Abdomen is nontender to palpation, taut. Patient sees [facility] for his cancer and pituitary Tumor. Work-up ordered including TSH, serial troponins, EKG, head CT CT abdomen pelvis to rule out hip abscess or intra-abdominal pathology. Patient is declining a rectal exam to rule out GI bleed at this time. He does agree to the proposed work-up. CBC shows no leukocytosis, hemoglobin 11.8, hematocrit 32.9, platelet count 530, sodium 131, potassium 3.7, chloride 95 BUN/creatinine within normal limits GFR greater than 80 alk phos 177 urine is pending at this time. CT abdomen pelvis and head ordered and is pending at this time. Patient requesting to be discharged, I did offer some pain medication Tylenol or ibuprofen which she declined at this time. IV normal saline 1 L ordered and is infusing. CT Abd/PelvisW: Other findings: None. IMPRESSION: 1. No acute abnormality in the abdomen or pelvis. No specific evidence of an inflammatory or obstructive process. 2. Recent postsurgical changes in the periarticular soft tissues of the right hip as described above. No discrete fluid collection to suggest abscess. Patient discharged from department in hemodynamically stable condition, Discussed with Dr. David Ayala pending CT result. Discussed strict return instruction, verbalized understanding. HPI General Mode of arrival: EMS . Date/Time Provider Initiated Documentation: 08/18/21 21:54 . Limitations to Documentation: no limitations . Information obtained by: patient, family (), EMS, RN notes reviewed and old records reviewed . HPI Narrative: 46-year-old male with a history of a pituitary tumor, pituitary macroadenoma, vertigo, obstructive sleep apnea status post a recent right hip surgery on 07/29/21 [facility] with chief complaint of syncopal episode prior to arrival. Patient states that he had gotten up to get something and had sat back down in his chair and he felt nauseated and dizzy and then next thing he knew EMS was there. His reports that she came out of the bathroom and found him slumped over in the chair pale, diaphoretic and drooling. EMS reports that on scene patient was hypotensive with systolic blood pressure in the 70s, patient was placed supine and blood pressure improved. BGL was approximately 128 on scene. Upon my initial examination patient is pale, alert and oriented, complaining of head pressure which he reports is not new for him. He does endorse nausea today and intermittent loose stools and constipation. Of note there is some mild surrounding erythema noted to the right hip incision. reports that it was draining no active drainage noted on my exam. Patient has his right hip in a flexed position. Abdomen is nontender to palpation, taut. Patient sees [facility] for his cancer and pituitary Tumor. Related Data Home Medications Medication Instructions Recorded Confirmed levothyroxine 25 mcg tablet 25 mcg PO DAILY 10/23/19 08/18/21 acetaminophen 500 mg tablet 1,000 mg PO Q8H PRN #90 tab 10/25/19 08/11/21 ibuprofen 600 mg tablet 600 mg PO TID PRN #90 tab 10/25/19 08/18/21 lamotrigine 150 mg tablet 150 mg PO BID #180 tab 07/15/21 08/18/21 (Lamictal) testosterone 20.25 mg/1.25 gram 1 pump TOPICAL DAILY 07/15/21 08/18/21 (1.62 %) transdermal gel pump (AndroGel) triamcinolone acetonide 0.1 % 1 applic TOPICAL BID #80 g 07/15/21 08/18/21 topical ointment meclizine 25 mg tablet 25 mg PO DAILY PRN #30 tab 07/17/21 08/18/21 acetaminophen 500 mg capsule 1,000 mg PO Q8H PRN PRN #90 cap 07/29/21 08/18/21 aspirin 81 mg tablet,delayed 81 mg PO BID #60 tab 07/29/21 08/18/21 release ibuprofen 600 mg tablet 600 mg PO TID #90 tab 07/29/21 08/11/21 metformin 500 mg tablet 500 mg PO DAILY 07/29/21 08/11/21 oxycodone 5 mg tablet 5 mg PO Q4H PRN #18 tab 07/29/21 08/11/21 pantoprazole 40 mg tablet,delayed 40 mg PO DAILY #30 tab 07/29/21 08/11/21 release (Protonix) sildenafil 50 mg tablet 50 mg PO DAILY PRN #20 tab 08/05/21 08/11/21 Previous Rx's Medication Instructions Recorded acetaminophen 500 mg tablet 1,000 mg PO Q8H PRN #90 tab 10/25/19 ibuprofen 600 mg tablet 600 mg PO TID PRN #90 tab 10/25/19 lamotrigine 150 mg tablet 150 mg PO BID #180 tab 07/15/21 (Lamictal) triamcinolone acetonide 0.1 % 1 applic TOPICAL BID #80 g 07/15/21 topical ointment meclizine 25 mg tablet 25 mg PO DAILY PRN #30 tab 07/17/21 acetaminophen 500 mg capsule 1,000 mg PO Q8H PRN PRN #90 cap 07/29/21 aspirin 81 mg tablet,delayed 81 mg PO BID #60 tab 07/29/21 release ibuprofen 600 mg tablet 600 mg PO TID #90 tab 07/29/21 oxycodone 5 mg tablet 5 mg PO Q4H PRN #18 tab 07/29/21 pantoprazole 40 mg tablet,delayed 40 mg PO DAILY #30 tab 07/29/21 release (Protonix) sildenafil 50 mg tablet 50 mg PO DAILY PRN #20 tab 08/05/21 Allergies Allergy/AdvReac Type Severity Reaction Status Date / Time dexamethasone Allergy Severe Other (See Verified 08/18/21 22:05 Comment) General Stated Complaint: Dizzy/Sync LORENZA: 2 Review of Systems All systems reviewed & are unremarkable except as noted in HPI and below Constitutional Constitutional: Reports as per HPI, Reports fatigue and Reports lethargy Cardiovascular Cardiovascular: Denies chest pain and Reports syncope Gastrointestinal Gastrointestinal: Denies melena, Denies hematochezia, Reports change in stool character, Reports constipation, Reports loose stools, Reports nausea and Denies vomiting Musculoskeletal Musculoskeletal: Reports as per HPI and Reports arthralgias (Recent right hip replacement) Integumentary/Breasts Skin/Breast: Reports as per HPI Neurologic Neurologic: Reports syncope and Reports convulsions Endocrine Endocrine: Reports fatigue PFSH All Active Problems (Updated 08/19/21 @ 00:39 by Toña Brito) Syncope (Chronic) History of total right hip replacement (Acute 07/29/21) As treatment for avascular necrosis. Pituitary tumor (Acute) MRI 11/28/18 [facility] MRI 02/27/19 [facility]. Pituitary macroadenoma (Acute) 05/31/20 Radiation Oncology F/U, and next visit in 12months. 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 Social History Smoking/Tobacco Use Status: Current every day Tobacco Type: cigarettes Years smoked: 28 and e-cigarettes Tobacco: How many years used: 28 Smokeless tobacco user: other Quit status: considering quitting Smoking risk assessment performed?: Yes Alcohol Intake: current Alcohol Intake frequency: a few times a month Alcohol type: beer Drug use: Daily Substance use type: marijuana Details: Marijuana in evening. 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 Pets and animals: Yes Pets and animals: dog(s) Sexually active: No Do you think of yourself as: straight/heterosexual Current gender identity: male What is your relationship status?: How often do you talk on the phone with friends or family?: once per week How often do you get together with friends or relatives?: never How often do you attend temple or hoahaoism services?: 1-3 times per year Do you belong to any clubs or organized social groups?: no Panel score (0-1 are the most socially isolated patients): 1 What type of physical activity do you participate in: none and additional Details: active at home--daily home activities Duration: < 15 minutes/day Sofia/Episcopal: Taoism Special sofia needs: No Seatbelt use: always Helmet use: Yes Drive intox or ride w/intox restaurant delivery driver: No Working smoke detector in home: No Fire extinguisher in home: Yes Carbon monox detector in home: Yes Firearms in home: Yes (1 at bedside loaded but door locked) Do you feel safe at home: Yes Do you feel safe in your relationship?: Yes Exam Const General: frail appearing and ill appearing chronically Nutritional Appearance: thin Orientation: alert, awake and oriented x3 Chest Chest: normal palpation of entire chest wall Extrem Right lower extremity: hip/thigh (Healing surgical incision, no surrounding induration, small amount of eryth) Details: other (No drainage, ) Course Vital Signs Vital signs: Vital Signs Temperature 36.7 C 08/18/21 21:55 Pulse 78 08/18/21 21:55 Respiratory Rate 14 08/18/21 21:55 Blood Pressure 123/76 08/18/21 21:55 Pulse Oximetry 100 08/18/21 21:55 Temperature 36.7 C 08/18/21 21:55 Temperature Source Skin 08/18/21 21:55 Pulse 78 08/18/21 21:55 Respiratory Rate 18 08/18/21 21:59 Respiratory Effort Non-Labored 08/18/21 21:59 Respiratory Depth Normal 08/18/21 21:59 Respiratory Pattern Normal 08/18/21 21:59 Blood Pressure 123/76 08/18/21 21:55 Blood Pressure Position Supine 08/18/21 21:55 Pulse Oximetry 100 08/18/21 21:55 Oxygen Delivery Method Room Air 08/18/21 21:55 Oxygen Flow Rate 0 08/18/21 21:55 Pain Level 0 08/18/21 21:55 PAWSS Have you Been Recently Intoxicated or Drunk Within the Last 30 days?: No Have you Ever Experienced Previous Episodes of Alcohol Withdrawal?: No Have you ever Experienced Withdrawal Seizures?: No Have you ever Experienced Delirium Tremens(DT)s?: No Have you ever undergone Alcohol Rehabilitation Treatment (i.e, inpt ot outpatient treatment programs)?: No Have you ever Experienced Blackouts?: No Have you ever Combined Alcohol with other Downers within the last 90 days?: No Have you ever Combined Alcohol with any other Substance of Abuse during the last 90 days?: No Positive Blood Alcohol level on Presentation? [PCS.BAL]: No Evidence of Increased Autonomic Activity (i.e. HR>120, tremor, sweating, agitation, nausea)?: No Result: 0
[2021-08-18 22:45] VITALS: BP 108/68; PULSE 76; RESP 15; O2SAT 98
[2021-08-18 22:52] LABS: Absolute Basophil Count 0.06 10^3/uL (0.0-0.2); Absolute Eosinophil Count 0.25 10^3/uL (0.0-0.7); Absolute Lymphocyte Count 1.81 10^3/uL (1.2-3.4); Absolute Monocyte Count 0.52 10^3/uL (0.1-0.8); Absolute Neutrophil Count 5.61 10^3/uL (1.2-6.7); Basophils % 0.7; HCT 32.9 % (40.0-50.0); HGB 11.8 g/dL (13.5-17.5); Immature Grans % 1.2; Lymphocytes % 21.7; MCH 30.2 pg (27.0-33.0); MCHC 35.9 % (32.0-36.0); MCV 84.1 fL (80-95); MPV 8.7 fL (8.0-11.0); Monocytes % 6.2; Neutrophils % 67.2; Nucleated RBC 0 %; Platelet Count 530 10^3/uL (130-400); RBC 3.91 10^6/uL (4.36-5.78); WBC 8.35 10^3/uL (4.4-10.8)
[2021-08-18] MEDS: Normal Saline 1,000 ML 1000 ML IV (23:08)
[2021-08-18 23:19] LABS: ALT 45 U/L (16-63); Albumin 4.5 g/dL (3.4-5.0); Alkaline Phosphatase 177 U/L (46-116); Anion Gap 10.6 mmol/L (3-11); BUN 13 mg/dL (7-18); Bilirubin, Total 0.2 mg/dL (0.2-1.0); CO2 25.4 mmol/L (21.0-32.0); CREATININE 0.9 mg/dL (0.70-1.30); Chloride 95 mmol/L (98-107); Glucose 87 mg/dL (74-106); Potassium 3.7 mmol/L (3.5-5.1); Sodium 131 mmol/L (136-145); TSH 1.73 uIU/mL (0.36-3.74); Total Protein 8.2 g/dL (6.4-8.2); Troponin I < 50 ng/L (<or=60)
[2021-08-18 23:27] LABS: AST 33 U/L (15-37)
[2021-08-18] MEDS: Omnipaque 350 MG/ML 100 ML BTL IJ (23:29)
[2021-08-18] MEDS: Normal Saline Flush 10 ML SYR IVP (23:30)
[2021-08-19] VITALS (8 sets, daily range): BP systolic 120–132; BP diastolic 69–85; PULSE 80–100; RESP 14–19; TEMP 36.7; O2SAT 96–99
--- NOTE | 2021-08-19 00:08 | DI.VRAD_ITS ---
PROCEDURE INFORMATION: Exam: CT Abdomen And Pelvis With Contrast Exam date and time: 08/18/2021 11:10 PM Age: 46 years old Clinical indication: Abdominal pain; Generalized; Prior surgery; Surgery date: <1 month; Surgery type: Bilat hip surgery, 3 weeks ago; Patient HX: Recent hip surgery, R/O abscess, abd pain TECHNIQUE: Imaging protocol: Computed tomography of the abdomen and pelvis with contrast. Radiation optimization: All CT scans at this facility use at least one of these dose optimization techniques: automated exposure control; mA and/or kV adjustment per patient size (includes targeted exams where dose is matched to clinical indication); or iterative reconstruction. Contrast material: OMNIPAQUE 350; Contrast volume: 91 ml; Contrast route: INTRAVENOUS (IV); COMPARISON: CR XR HIP RT COMPLETE AP PELVIS 08/11/2021 11:23 AM FINDINGS: Lungs: Minor dependent hypoventilatory changes in both lower lobes. Lung bases are otherwise clear. No pleural effusions. Liver: Unremarkable. Gallbladder and bile ducts: Unremarkable. No calcified gallstones. No intrahepatic or extrahepatic biliary ductal dilation. Pancreas: Unremarkable. Spleen: Unremarkable. The spleen is normal in size. Adrenal glands: Unremarkable. Kidneys and ureters: Unremarkable. No hydronephrosis or hydroureter. There is normal and symmetric renal enhancement. Stomach and bowel: The stomach is nondilated. Small and large bowel are normal in caliber. No inflammatory changes are apparent in the bowel. Appendix: A nondilated retrocecal appendix is identified. Intraperitoneal space: Unremarkable. No ascites, fluid collection, or pneumoperitoneum. Retroperitoneal space: Unremarkable. No retroperitoneal collection or mass. Vasculature: Mild atherosclerotic vascular calcifications in the aortoiliac system and in the left common femoral artery, advanced for patient's age. Normal caliber abdominal aorta. Lymph nodes: No pathologically enlarged lymph nodes. Urinary bladder: Moderately distended. Otherwise unremarkable. Reproductive: Unremarkable as visualized. Bones/joints: Bilateral total hip arthroplasties. Degenerative changes in the visualized spine with transitional lumbosacral anatomy. Grade 1 anterolisthesis of L5 on S1 secondary to chronic-appearing bilateral L5 pars interarticularis defects. Soft tissues: There is fat stranding in the intermuscular planes and in the subcutaneous soft tissues about the right hip, consistent with recent surgery. There is no discernible fluid collection about the right hip to suggest abscess. There is no periarticular soft tissue emphysema. Other findings: None. IMPRESSION: 1. No acute abnormality in the abdomen or pelvis. No specific evidence of an inflammatory or obstructive process. 2. Recent postsurgical changes in the periarticular soft tissues of the right hip as described above. No discrete fluid collection to suggest abscess. Dictated and Authenticated by: Amarilys Rodriguez MD. Ordering:YOKASTA Ding MD
--- NOTE | 2021-08-19 01:01 | DI.VRAD_ITS ---
PROCEDURE INFORMATION: Exam: CT Head Without Contrast Exam date and time: 08/18/2021 11:06 PM Age: 46 years old Clinical indication: Syncope and collapse; Prior surgery; Surgery date: 6+ months; Surgery type: Pituitary tumor removal (30% per patient) TECHNIQUE: Imaging protocol: Computed tomography of the head without contrast. Radiation optimization: All CT scans at this facility use at least one of these dose optimization techniques: automated exposure control; mA and/or kV adjustment per patient size (includes targeted exams where dose is matched to clinical indication); or iterative reconstruction. COMPARISON: No relevant prior studies available. FINDINGS: Postoperative changes: Postoperative changes from transsphenoidal pituitary resection noted. There is a wide open cavity in place of the sphenoid sinus, containing complex soft tissue/mucosal thickening and mild fluid, communicating with the nasopharynx. There is no bony separation between the sella turcica and the nasopharynx. The remaining sella turcica is broad, containing fluid and soft tissue. Brain: Negative for intracranial hemorrhage. Negative for midline shift. No significant white matter hypoattenuation. No pneumocephalus. Extra-axial space: No evidence of subdural hemorrhage. Cerebral ventricles: No ventriculomegaly. Paranasal sinuses: Ethmoid air cells are moderately opacified. Layering fluid is present in the right maxillary sinus. Frontal sinus is small and clear. Left maxillary sinus is clear. Mastoid air cells: Visualized mastoid air cells are well aerated. Bones/joints: Unremarkable. No acute fracture. Soft tissues: Unremarkable scalp. Visualized parapharyngeal spaces are normal. Normal suboccipital tissue planes. IMPRESSION: 1. Negative for intracranial hemorrhage. 2. Extensive postoperative changes centered at the sphenoid. Dictated and Authenticated by: Joon Hester MD. Ordering:YOKASTA Ding MD
[2021-08-19 01:09] LABS: Bilirubin Negative (Negative); Blood Small (Negative); Clarity Clear (Clear); Glucose Negative (Negative); Ketones Negative (Negative); Leukocyte Esterase Negative (Negative); Nitrite Negative (Negative); Specific Gravity 1.015 (1.005-1.025); Urobilinogen 0.2 EU/dL (Up TO 0.2); pH 6.5 (5-8)
[2021-08-19 01:15] LABS: Bacteria Rare HPF (Negative); C & S Indicated? No; Casts 0-2 Hyaline LPF (Negative); Crystals Negative HPF (Negative); Epithelial Cells Rare HPF (Negative); Mucus Negative (Negative); WBC 0-2 HPF (0-5)
[2021-08-19 01:19] LABS: *AMPHETAMINES SCREEN URINE Negative (Negative); *BARBITURATES SCREEN URINE Negative (Negative); *BENZODIAZEPINES SCREEN URINE Negative (Negative); Cannabinoids THC Positive (Negative); Cocaine Screen,Urine Negative (Negative); METHADONE URINE SCREEN Negative (Negative); OPIATES URINE SCREEN Negative (Negative)
[2021-08-19 01:20] LABS: Tricyclic Antidepressants Negative (Negative)
== END 2021-08-19 01:23 | disposition home or self-care (01) ==
PROVIDERS: Emergency Provider Registered Nurse Emergency; PCP Family Medicine
DX: R55 Syncope and collapse (principal); R42 Dizziness and giddiness; D35.2 Benign neoplasm of pituitary gland; Z79.899 Other long term (current) drug therapy
CPT/HCPCS: 36415; 80053; 80307; 93005; 96360; 96361; 99285; 70450; 74177; 81003; 81015; 83735; 84443; 84484; 85025; 93010; 99284; J3490

== ENCOUNTER 2021-09-03 02:59 | Outpatient (CLI) | payer MEDICARE, MEDICAID, SELFPAY ==
[2021-09-03 10:44] LABS: Abs Immature Grans 0.03 10^3/uL (0.0-0.06); Absolute Basophil Count 0.07 10^3/uL (0.0-0.2); Absolute Eosinophil Count 0.24 10^3/uL (0.0-0.7); Absolute Lymphocyte Count 1.55 10^3/uL (1.2-3.4); Absolute Monocyte Count 0.47 10^3/uL (0.1-0.8); Absolute Neutrophil Count 4.69 10^3/uL (1.2-6.7); Eosinophils % 3.4; Immature Grans % 0.4; MCH 29.6 pg (27.0-33.0); MCHC 35.5 % (32.0-36.0); MCV 83.6 fL (80-95); MPV 8.5 fL (8.0-11.0); Monocytes % 6.7; Neutrophils % 66.5; Platelet Count 336 10^3/uL (130-400); RBC 3.71 10^6/uL (4.36-5.78); RDW-SD 39.8 fL; WBC 7.05 10^3/uL (4.4-10.8)
[2021-09-03 11:33] LABS: Anion Gap 7.1 mmol/L (3-11); BUN 9 mg/dL (7-18); CO2 28.9 mmol/L (21.0-32.0); CREATININE 0.7 mg/dL (0.70-1.30); Calcium 8.7 mg/dL (8.5-10.1); Chloride 94 mmol/L (98-107); Glucose 97 mg/dL (74-106); Potassium 4.2 mmol/L (3.5-5.1); Sodium 130 mmol/L (136-145)
[2021-09-05 12:14] LABS: Lamotrigine 4.1 mcg/mL (2.5 - 15.0)
== END 2021-09-03 03:00 | disposition home or self-care (01) ==
PROVIDERS: PCP Family Medicine; Visit Provider Psychiatry & Neurology Neurology
DX: D35.2 Benign neoplasm of pituitary gland (principal); G40.909 Epilepsy, unspecified, not intractable, without status epilepticus; Z51.81 Encounter for therapeutic drug level monitoring; Z79.899 Other long term (current) drug therapy
CPT/HCPCS: 36415; 80048; 80175; 85025

== ENCOUNTER → 2021-09-15 09:26 | Outpatient (BNVA) | payer MEDICARE, MEDICAID, SELFPAY | PROVIDERS: PCP Family Medicine; Visit Provider Student in an Organized Health Care Education/Training Program | DX: D49.7 Neoplasm of unspecified behavior of endocrine glands and other parts of nervous system (principal); Z96.651 Presence of right artificial knee joint ==

== ENCOUNTER → 2021-10-27 09:42 | Outpatient (BNVA) | payer MEDICARE, MEDICAID, SELFPAY | PROVIDERS: PCP Family Medicine; Referring Provider Family Medicine; Visit Provider Student in an Organized Health Care Education/Training Program | DX: Z47.1 Aftercare following joint replacement surgery (principal); Z96.641 Presence of right artificial hip joint ==

== ENCOUNTER → 2021-12-15 09:15 | Outpatient (BNVA) | payer MEDICARE, MEDICAID, SELFPAY | PROVIDERS: PCP Family Medicine; Referring Provider Family Medicine; Visit Provider Student in an Organized Health Care Education/Training Program | DX: Z96.641 Presence of right artificial hip joint (principal); M70.61 Trochanteric bursitis, right hip | CPT/HCPCS: 99213 ==

== ENCOUNTER 2021-12-22 04:08 | Outpatient (CLI) | payer MEDICARE, MEDICAID, SELFPAY ==
[2021-12-22 15:27] LABS: Abs Immature Grans 0.06 10^3/uL (0.0-0.06); Absolute Basophil Count 0.08 10^3/uL (0.0-0.2); Absolute Eosinophil Count 0.31 10^3/uL (0.0-0.7); Absolute Lymphocyte Count 2.05 10^3/uL (1.2-3.4); Absolute Monocyte Count 0.64 10^3/uL (0.1-0.8); Absolute Neutrophil Count 6.81 10^3/uL (1.2-6.7); Basophils % 0.8; Eosinophils % 3.1; HCT 34.5 % (40.0-50.0); HGB 12.3 g/dL (13.5-17.5); Immature Grans % 0.6; Lymphocytes % 20.6; MCH 30.4 pg (27.0-33.0); MCHC 35.7 % (32.0-36.0); MCV 85 fL (80-95); MPV 9.4 fL (8.0-11.0); Monocytes % 6.4; Neutrophils % 68.5; Platelet Count 328 10^3/uL (130-400); RBC 4.05 10^6/uL (4.36-5.78); WBC 9.95 10^3/uL (4.4-10.8)
[2021-12-22 15:54] LABS: ALT 28 U/L (16-63); AST 23 U/L (15-37); Alkaline Phosphatase 131 U/L (46-116); Anion Gap 8.4 mmol/L (3-11); BUN 10 mg/dL (7-18); Bilirubin, Total 0.3 mg/dL (0.2-1.0); CO2 26.6 mmol/L (21.0-32.0); CREATININE 0.9 mg/dL (0.70-1.30); Calcium 8.7 mg/dL (8.5-10.1); Chloride 98 mmol/L (98-107); Glucose 120 mg/dL (74-106); Potassium 3.8 mmol/L (3.5-5.1); Sodium 133 mmol/L (136-145); Total Protein 6.9 g/dL (6.4-8.2)
[2021-12-22 23:26] LABS: Prolactin 8.3 ng/mL (2.1-17.7)
[2021-12-23 16:07] LABS: Thyroxine Total 4.8 mcg/dL (4.5 - 11.7)
[2021-12-28 17:25] LABS: Testosterone, Total 122 ng/dL (240-950)
== END 2021-12-22 04:09 | disposition home or self-care (01) ==
LOC: LBO 04:08
PROVIDERS: PCP Family Medicine; Visit Provider Internal Medicine Endocrinology, Diabetes & Metabolism
DX: D49.7 Neoplasm of unspecified behavior of endocrine glands and other parts of nervous system (principal); E23.6 Other disorders of pituitary gland
CPT/HCPCS: 36415; 80053; 82533; 84403; 84146; 84479; 85025

== ENCOUNTER → 2022-02-23 09:48 | Outpatient (BNVA) | payer MEDICARE, MEDICAID, SELFPAY | PROVIDERS: PCP Family Medicine; Referring Provider Family Medicine; Visit Provider Student in an Organized Health Care Education/Training Program | DX: Z96.641 Presence of right artificial hip joint (principal) | CPT/HCPCS: 99213 ==

== ENCOUNTER 2022-05-15 12:20 | Outpatient (REF) | payer MEDICARE, MEDICAID, SELFPAY | END 2022-05-15 12:21 | disposition home or self-care (01) | LOC: LBN 12:20 | PROVIDERS: PCP Family Medicine; Visit Provider Nurse Practitioner Adult Health | DX: J02.9 Acute pharyngitis, unspecified (principal) | CPT/HCPCS: 87070 ==

== ENCOUNTER 2022-07-30 11:07 | Outpatient (CLI) | payer MEDICARE, MEDICAID, SELFPAY ==
--- NOTE | 2022-07-30 08:45 | DI.RAD_ITS ---
Exam(s) XR HIP RT AP LAT ONLY EXAM: XR HIP RT AP LAT ONLY INDICATION: ANNUAL F/U R JASWANT. COMPARISON: CR XR HIP RT COMPLETE AP PELVIS from 08/11/2021 TECHNIQUE: 2D digital imaging was performed. Two views. FINDINGS: There has been no change in the alignment of the right hip prosthesis. No abnormal bony lucencies ar e seen. DATA REPOSITORY: RADIATION DOSE DELIVERED:
== END 2022-07-30 11:08 | disposition home or self-care (01) ==
LOC: DIORS 11:07
PROVIDERS: PCP Family Medicine; Referring Provider Family Medicine; Visit Provider Student in an Organized Health Care Education/Training Program
DX: Z96.641 Presence of right artificial hip joint (principal); Z47.1 Aftercare following joint replacement surgery
CPT/HCPCS: 99213; 73502

== ENCOUNTER 2023-02-23 19:27 | Outpatient (CLI) | payer MEDICARE, MEDICAID, SELFPAY ==
[2023-02-23 15:16] LABS: Abs Immature Grans 0.06 10^3/uL (0.0-0.06); Absolute Basophil Count 0.08 10^3/uL (0.0-0.2); Absolute Eosinophil Count 0.25 10^3/uL (0.0-0.7); Absolute Lymphocyte Count 2.28 10^3/uL (1.2-3.4); Absolute Monocyte Count 0.43 10^3/uL (0.1-0.8); Absolute Neutrophil Count 5.76 10^3/uL (1.2-6.7); Basophils % 0.9; Eosinophils % 2.8; HCT 36.4 % (40.0-50.0); HGB 12.6 g/dL (13.5-17.5); Immature Grans % 0.7; Lymphocytes % 25.7; MCH 29.2 pg (27.0-33.0); MCHC 34.6 % (32.0-36.0); MCV 84 fL (80-95); MPV 9.1 fL (8.0-11.0); Monocytes % 4.9; Platelet Count 328 10^3/uL (130-400); RBC 4.32 10^6/uL (4.36-5.78); RDW 12.5 % (11.8-14.1); RDW-SD 38.2 fL; WBC 8.86 10^3/uL (4.4-10.8)
[2023-02-23 16:07] LABS: ALT 29 U/L (16-63); AST 25 U/L (15-37); Albumin 4.1 g/dL (3.4-5.0); Alkaline Phosphatase 124 U/L (46-116); Anion Gap 8.6 mmol/L (3-11); BUN 16 mg/dL (7-18); Bilirubin, Total 0.2 mg/dL (0.2-1.0); CO2 28.4 mmol/L (21.0-32.0); CREATININE 1.1 mg/dL (0.70-1.30); Calcium 9.6 mg/dL (8.5-10.1); Chloride 100 mmol/L (98-107); Estimated GFR 83.84 (mL/min/1.73m2); Glucose 103 mg/dL (74-106); Potassium 3.6 mmol/L (3.5-5.1); Sodium 137 mmol/L (136-145); TSH 0.51 uIU/mL (0.36-3.74); Total Protein 7.8 g/dL (6.4-8.2)
== END 2023-02-23 19:28 | disposition home or self-care (01) ==
LOC: LBO 19:28
PROVIDERS: PCP Family Medicine; Visit Provider Psychiatry & Neurology Neurology
DX: G40.909 Epilepsy, unspecified, not intractable, without status epilepticus (principal)
CPT/HCPCS: 36415; 80053; 84443; 85025

== ENCOUNTER 2023-08-02 15:17 | Outpatient (CLI) | payer MEDICARE, SELFPAY ==
--- NOTE | 2023-08-02 08:45 | DI.RAD_ITS ---
Exam(s) XR HIP RT AP LAT ONLY EXAM: XR HIP RT AP LAT ONLY CLINICAL HISTORY: YEARLY F/U RIGHT JASWANT. TECHNIQUE: 2D digital imaging was performed. Two views COMPARISON: CR XR HIP RT AP LAT ONLY from 07/30/2022 FINDINGS: BONES: No acute fracture is present. No bony destructive lesion is seen. Stable alignment of right hip prosthesis. JOINTS: No dislocation present. SOFT TISSUE: Normal. IMPRESSION: No acute abnormality. Stable right hip prosthesis. DATA REPOSITORY: RADIATION DOSE DELIVERED:
== END 2023-08-02 15:18 | disposition home or self-care (01) ==
LOC: DIORS 15:17
PROVIDERS: PCP Family Medicine; Visit Provider Student in an Organized Health Care Education/Training Program
DX: Z47.1 Aftercare following joint replacement surgery (principal); Z96.641 Presence of right artificial hip joint
CPT/HCPCS: 99213; 73502

== ENCOUNTER 2023-10-15 12:52 | Outpatient (CLI) | payer MEDICARE, SELFPAY ==
[2023-10-15 12:58] LABS: HCT 40.8 % (40.0-50.0); HGB 14.4 g/dL (13.5-17.5); MCH 29.8 pg (27.0-33.0); MCHC 35.3 % (32.0-36.0); MCV 84 fL (80-95); MPV 9.7 fL (8.0-11.0); Platelet Count 324 10^3/uL (130-400); RBC 4.84 10^6/uL (4.36-5.78); WBC 8.03 10^3/uL (4.4-10.8)
[2023-10-19 14:39] LABS: Testosterone, Total 294 ng/dL (240-950)
== END 2023-10-15 12:53 | disposition home or self-care (01) ==
LOC: LBO 12:53
PROVIDERS: PCP Family Medicine; Visit Provider Urology
DX: E29.1 Testicular hypofunction (principal)
CPT/HCPCS: 36415; 84403; 85027

== ENCOUNTER 2024-01-19 03:08 | Outpatient (CLI) | payer MEDICARE, SELFPAY ==
[2024-01-19 11:01] LABS: HCT 46.1 % (40.0-50.0)
[2024-01-19 11:13] LABS: Anion Gap 7.7 mmol/L (3-11); CO2 30.3 mmol/L (21.0-32.0); Chloride 101 mmol/L (98-107); Potassium 3.5 mmol/L (3.5-5.1); Sodium 139 mmol/L (136-145)
[2024-01-19 18:10] LABS: PSA, Diagnostic 0.7 ng/mL (<=2.5)
[2024-01-20 21:23] LABS: Free Thyroxine Index 3.3 mcg/dL (4.8 - 12.7)
[2024-01-22 16:14] LABS: Testosterone, Total 745 ng/dL (240-950)
== END 2024-01-19 03:09 | disposition home or self-care (01) ==
PROVIDERS: PCP Family Medicine; Visit Provider Internal Medicine Endocrinology, Diabetes & Metabolism
DX: E03.8 Other specified hypothyroidism (principal); Z12.5 Encounter for screening for malignant neoplasm of prostate; E29.1 Testicular hypofunction
CPT/HCPCS: 36415; 80051; 84403; 84153; 84479; 85014; 85018

== ENCOUNTER 2024-05-26 00:59 | Outpatient (CLI) | payer MEDICARE, SELFPAY ==
[2024-05-26 10:08] LABS: Anion Gap 6.2 mmol/L (3-11); BUN 17 mg/dL (7-18); CO2 29.8 mmol/L (21.0-32.0); CREATININE 1.1 mg/dL (0.70-1.30); Calcium 9.4 mg/dL (8.5-10.1); Chloride 105 mmol/L (98-107); Estimated GFR 82.81 (mL/min/1.73m2); Glucose 67 mg/dL (74-106); Potassium 3.7 mmol/L (3.5-5.1); Sodium 141 mmol/L (136-145)
[2024-05-29 14:13] LABS: Free Thyroxine Index 6.3 mcg/dL (4.8 - 12.7); Thyroxine Total 6.9 mcg/dL (4.5 - 11.7)
[2024-05-31 14:23] LABS: Testosterone, Total 438 ng/dL (240-950)
== END 2024-05-26 01:00 | disposition home or self-care (01) ==
LOC: LBO 00:59
PROVIDERS: PCP Family Medicine; Visit Provider Internal Medicine Endocrinology, Diabetes & Metabolism
DX: D47.9 Neoplasm of uncertain behavior of lymphoid, hematopoietic and related tissue, unspecified (principal)
CPT/HCPCS: 36415; 80048; 84403; 84436; 84479

== ENCOUNTER 2024-06-30 00:55 | Outpatient (CLI) | payer MEDICARE, SELFPAY ==
[2024-06-30 11:50] LABS: Abs Immature Grans 0.03 10^3/uL (0.0-0.06); Absolute Basophil Count 0.07 10^3/uL (0.0-0.2); Absolute Eosinophil Count 0.17 10^3/uL (0.0-0.7); Absolute Lymphocyte Count 2.39 10^3/uL (1.2-3.4); Absolute Monocyte Count 0.66 10^3/uL (0.1-0.8); Absolute Neutrophil Count 5.27 10^3/uL (1.2-6.7); Basophils % 0.8 %; HCT 37.8 % (40.0-50.0); HGB 13.1 g/dL (13.5-17.5); Immature Grans % 0.3 %; Lymphocytes % 27.8 %; MCH 29.4 pg (27.0-33.0); MCHC 34.7 % (32.0-36.0); MCV 85 fL (80-95); Monocytes % 7.7 %; Neutrophils % 61.4 %; Platelet Count 326 10^3/uL (130-400); RBC 4.45 10^6/uL (4.36-5.78); RDW-SD 40.1 fL; WBC 8.59 10^3/uL (4.4-10.8)
[2024-06-30 11:59] LABS: ALT 20 U/L (16-63); AST 18 U/L (15-37); Albumin 3.6 g/dL (3.4-5.0); Alkaline Phosphatase 85 U/L (46-116); BUN 14 mg/dL (7-18); Bilirubin, Total 0.58 mg/dL (0.2-1.0); CREATININE 1.2 mg/dL (0.70-1.30); Chloride 105 mmol/L (98-107); Glucose 97 mg/dL (74-106); Sodium 139 mmol/L (136-145); Total Protein 6.7 g/dL (6.4-8.2)
== END 2024-06-30 00:56 | disposition home or self-care (01) ==
PROVIDERS: PCP Family Medicine; Visit Provider Psychiatry & Neurology Neurology
DX: G40.909 Epilepsy, unspecified, not intractable, without status epilepticus (principal)
CPT/HCPCS: 36415; 80053; 85025

== ENCOUNTER 2024-12-13 16:19 | Outpatient (CLI) | payer MEDICARE, SELFPAY | END 2024-12-13 16:20 | disposition home or self-care (01) | LOC: LBO 16:19 | PROVIDERS: PCP Family Medicine; Visit Provider Urology | DX: E29.1 Testicular hypofunction (principal) | CPT/HCPCS: 36415; 84403 ==

== ENCOUNTER 2025-01-10 01:12 | Outpatient (CLI) | payer MEDICARE, SELFPAY ==
--- NOTE | 2025-01-10 06:45 | DI.RAD_ITS ---
Exam(s) XR LUMBAR SPINE COMPLETE EXAM: XR LUMBAR SPINE COMPLETE CLINICAL HISTORY: back pain,M54.9. TECHNIQUE: 2D digital imaging was performed of the lumbar spine. Five images were obtained. AP, lateral, right oblique, left oblique and L5-S1 spot views were obtained. COMPARISON: CT CT ABDOMEN PELVIS W from 08/18/2021 FINDINGS: BONES: No fracture or destructive lesion. Vertebral bodies are unremarkable. No facet hypertrophy identified. Portions of the patient's bilateral total hip arthroplasties are visualized. DISKS: Intervertebral disc spaces are maintained. ALIGNMENT: Lumbar spinal alignment is within normal limits. There is bilateral L5 spondylolysis. There is stable grade 1 spondylolisthesis of L4 on L5. SOFT TISSUE: Atherosclerotic calcification is present. IMPRESSION: Stable L5 spondylolysis and grade 1 spondylolisthesis of L5 on S1. DATA REPOSITORY: RADIATION DOSE DELIVERED:
== END 2025-01-10 01:32 ==
LOC: DI 01:12
PROVIDERS: PCP Family Medicine; Visit Provider Family Medicine
DX: M43.17 Spondylolisthesis, lumbosacral region (principal)
CPT/HCPCS: 72110

== ENCOUNTER 2025-01-18 09:06 | Outpatient (CLI) | payer MEDICARE, SELFPAY | END 2025-01-18 09:07 | disposition home or self-care (01) | LOC: LBO 09:06 | PROVIDERS: PCP Family Medicine; Visit Provider Family Medicine | DX: E27.1 Primary adrenocortical insufficiency (principal) | CPT/HCPCS: 36415; 82533 ==

== ENCOUNTER 2025-02-22 09:04 | Outpatient (CLI) | payer MEDICARE, SELFPAY ==
[2025-02-23 20:09] LABS: Adrenocorticotropic Hormone, P 31 pg/mL
== END 2025-02-22 09:05 | disposition home or self-care (01) ==
PROVIDERS: PCP Family Medicine; Visit Provider Internal Medicine
DX: D49.7 Neoplasm of unspecified behavior of endocrine glands and other parts of nervous system (principal)
CPT/HCPCS: 36415; 82533; 82024